=== PATIENT | female | born 1950 | race Caucasian/White ===

== ENCOUNTER → 2018-08-30 | Outpatient (CLI) | payer MEDICARE ==
--- NOTE | 2018-08-31 13:34 | MM ---
Reason for exam: screening (asymptomatic). Last mammogram was performed 1 year and 1 month ago. History: Patient is postmenopausal. Family history of breast cancer in sister at age 69. Benign US right guided VAD of the right breast, June 07, 2009. Benign right mammotome panel of the right breast, March 27, 2006. Cyst aspiration of the right breast, October 19, 1998. Benign ultrasound-guided cyst aspiration of the right breast, October 19, 1998. 3 cyst aspirations of the left breast. 4 cyst aspirations of the right breast. Physical Findings: A clinical breast exam by your physician is recommended on an annual basis and results should be correlated with mammographic findings. MG 3D Screening Mammo W/Cad Bilateral CC and MLO view(s) were taken. Prior study comparison: August 12, 2017, bilateral MG screening mammo w CAD. July 30, 2016, bilateral MG 3d screening mammo w/cad. The breast tissue is heterogeneously dense. This may lower the sensitivity of mammography. There are benign appearing round calcifications bilaterally. Previous mammotome biopsy in the right breast x 2. There is no discrete abnormality. ASSESSMENT: Benign, BI-RAD 2 RECOMMENDATION: Routine screening mammogram of both breasts in 1 year.
== END | disposition home or self-care (01) ==
LOC: RADMAMWWP 10:59
PROVIDERS: ATTEND Family Medicine
DX: Z12.31 Encounter for screening mammogram for malignant neoplasm of breast (principal)
CPT/HCPCS: 77063; 77067

== ENCOUNTER → 2018-11-16 | Outpatient (CLI) | payer MEDICARE ==
--- NOTE | 2018-11-16 16:07 | MR ---
EXAMINATION TYPE: MR knee LT wo con DATE OF EXAM: 11/16/2018 COMPARISON: None HISTORY: Left knee pain TECHNIQUE: Multiplanar, multisequence images of the knee is performed without IV contrast. FINDINGS: MEDIAL MENISCUS: Oblique tear posterior horn medial meniscus. Anterior horn is intact. LATERAL MENISCUS: Anterior and posterior horns are intact without tear. Extensive degeneration noted anterior and posterior horns. CRUCIATE LIGAMENTS: The anterior and posterior cruciate ligaments are intact and unremarkable. COLLATERAL LIGAMENTS: The medial collateral ligament and lateral collateral ligament complex are inta ct and unremarkable. EXTENSOR MECHANISM: Visualized quadriceps and patellar tendons are intact. EFFUSION: Small to moderate joint effusion noted. POPLITEAL CYST: No popliteal/thayer cyst. TRICOMPARTMENT SPACES: Moderate to severe narrowing medial tibiofemoral joint space. Mild patellofemo ral joint space narrowing. CARTILAGE: Intact. BONE MARROW SIGNAL: No focal abnormal marrow signal is appreciated. OTHER: No additional significant abnormality is appreciated. IMPRESSION: 1. Oblique tear posterior horn medial meniscus. 2. Changes of osteoarthritis. 3. Joint effusion.
== END | disposition home or self-care (01) ==
LOC: RADMRIMAIN 13:48
PROVIDERS: ATTEND Orthopaedic Surgery
DX: S83.242A Other tear of medial meniscus, current injury, left knee, initial encounter (principal); M17.12 Unilateral primary osteoarthritis, left knee

== ENCOUNTER 2018-12-30 10:40 | Day surgery (SDC) | payer MEDICARE ==
[2018-12-24 10:06] VITALS: BMI 36.6
--- NOTE | 2018-12-29 15:54 | HP ---
HISTORY AND PHYSICAL REASON FOR ADMISSION: Surgery scheduled for 12/30/2018. Ellen Silva is a 68-year-old patient seen with progressive left knee pain. Treatment options were discussed with her. She elected to proceed with arthroscopy. Consent was obtained. Medical clearance was provided by Dr. Duncan. PAST MEDICAL HISTORY: Hyperlipidemia and hypertension. PAST SURGICAL HISTORY: Cholecystectomy, coronary artery bypass surgery. MEDICATIONS: Aspirin, Mobic, simvastatin, Enbrel, lisinopril, methotrexate, metoprolol. ALLERGIES: IODINE. SOCIAL HISTORY: She denies tobacco use. PHYSICAL EXAMINATION: Evaluation of the left knee range of motion is 0 to 130 degrees. Tenderness along the medial and lateral joint line. Positive medial Georgiana's. Ligaments stable. Hip rotation without pain. Distal neurovascular exam intact. RADIOGRAPHS: Radiographs of the left knee revealed moderate osteoarthritis. An MRI of the left knee revealed a medial meniscal tear. There was a joint effusion. IMPRESSION: Internal derangement, left knee with medial meniscal tear. PLAN: Left knee arthroscopy with partial meniscectomy and debridement. Surgery scheduled for 12/30/2018. MMODL / IJN: [id number] /
[~2018-12-30 10:40] MED LIST: LACTATED RINGERS 1,000 ML IV SCH; LIDOCAINE 1% 20 ML VIAL (10MG/ML) FOR IV START INTRADERMA PRN; ONDANSETRON 4 MG/2 ML VIAL IVP ONE; ceFAZolin IN SWFI 2 GM/20 ML SYRINGE IVP ONE; fentaNYL (PF) 50 MCG/ML 2 ML AMP IV PRN
[2018-12-30] MEDS ORDERED: MIDAZOLAM 2 MG/2 ML VIAL ONE (11:48)
[2018-12-30] MEDS ORDERED: PROPOFOL 10 MG/ML 20 ML VIAL IV ONE (11:48)
[2018-12-30] MEDS ORDERED: ePHEDrine SULFATE/0.9% NACL/PF 50 MG/5 ML SYRINGE IV ONE (11:48)
[2018-12-30] MEDS ORDERED: LIDOCAINE 1% INJ 10MG/ML (20 ML MDV) ONE (11:48)
[2018-12-30] MEDS ORDERED: fentaNYL (PF) 50 MCG/ML 2 ML AMP ONE (11:48)
[2018-12-30] MEDS ORDERED: BUPIVACAIN-EPI 0.5%-1:200,000 30 ML VIAL SQ ONE (12:11)
--- NOTE | 2018-12-30 12:43 | P.OP ---
Date of Procedure: 12/30/18 Preoperative Diagnosis: Internal derangement left knee Postoperative Diagnosis: 1. Tear medial meniscus left knee 2. Grade 3 chondromalacia medial femoral condyle left knee 3. Grade 3 chondral malacia lateral femoral condyle left knee 4. Reactive synovitis medial, lateral and suprapatellar compartments left knee Procedure(s) Performed: 1. Arthroscopic partial medial meniscectomy left knee 2. Arthroscopic chondroplasty medial femoral condyle left knee 3. Arthroscopic chondroplasty lateral femoral condyle left knee 4. Arthroscopic partial synovectomy medial, lateral and suprapatellar compartments left knee Anesthesia: BRYSONA, local Surgeon: Raffy Dominguez Estimated Blood Loss (ml): 10 Pathology: none sent Condition: stable Disposition: PACU Indications for Procedure: 68-year-old patient seen with progressive left knee pain. After treatment options were discussed, she elected to proceed with arthroscopy. Operative Findings: See description of procedure Description of Procedure: Patient was taken to the operative suite. Patient underwent a general anesthetic by the department of anesthesia. Patient was given preoperative antibiotics. The left lower extremity was placed in a well-padded arthroscopic leg babb. The left leg was prepped and draped in the normal sterile orthopedic fashion. A lateral parapatellar and suprapatellar incision was made. Trochars were inserted. Arthroscopy was initiated. Suprapatellar pouch revealed diffuse thick reactive synovitis. The patellofemoral joint appeared to articulate congruently. There was grade 2 chondromalacia of the patella with no osteochondral tears present. The scope was guided into the medial gutter. No loose bodies or plica were identified. The scope was then guided into the medial compartment. A medial parapatellar incision was made. Trocar inserted followed by probe. There was a complex tear involving the posterior horn and midbody of the medial meniscus. There were grade 3 chondromalacia changes of the medial femoral condyle. There was thick reactive synovitis anteriorly. I performed a partial medial meniscectomy down to stable tissue. I performed a chondroplasty of the medial femoral condyle down to stable tissue. I performed a partial synovectomy decompressing the reactive synovitis. The residual meniscus was stable. There was good decompression of synovitis. The residual osteochondral surface was stable. Scope and probe were then guided into the intercondylar notch. Cruciates were identified, probed and found to be stable. The scope and probe were then guided into lateral compartment. There was some mild superficial fraying of lateral meniscus. There was grade 3 chondromalacia central weightbearing portion lateral femoral condyle with small osteochondral tears present. There was thick reactive synovitis anteriorly. I debrided the superficial tears with a motorized shaver. I performed a chondroplasty of the medial femoral condyle down to stable tissue. I performed a partial synovectomy decompressing reactive synovitis. The residual osteochondral surface was stable. There was good decompression of the synovitis. The scope was in guided back into the suprapatellar compartment. I introduced a motorized shaver into the suprapatellar compartment. I debrided piecemeal fragments of meniscus I encountered. I performed a partial synovectomy decompressing reactive synovitis. The shaver was removed. I took one more look on the entire knee, no residual debris. Instruments were now removed from the joint. The joint was infiltrated with .25% Marcaine. Steri-Strips were applied to the portal sites. Sterile dressings were applied. The patient was placed into a HERMELINDA hose. No tourniquet was utilized. The patient was awakened, transferred to a bed and taken to recovery stable satisfactory condition.
[2018-12-30 12:49] VITALS: TEMP 97
[2018-12-30] MEDS: HYDROmorphone 0.5 MG/0.5 ML SYRINGE IVP PRN ×2 (13:10→13:15)
[2018-12-30 13:32] VITALS: RESP 18
[2018-12-30 14:51] VITALS: BP 125/73; PULSE 78
== END 2018-12-30 14:51 | disposition home or self-care (01) ==
LOC: OR 10:40
PROVIDERS: ATTEND Orthopaedic Surgery
DX: S83.232A Complex tear of medial meniscus, current injury, left knee, initial encounter (principal); M65.88 Other synovitis and tenosynovitis, other site; M23.301 Other meniscus derangements, unspecified lateral meniscus, left knee; M94.262 Chondromalacia, left knee; Z95.1 Presence of aortocoronary bypass graft; I10 Essential (primary) hypertension; E78.5 Hyperlipidemia, unspecified; E78.00 Pure hypercholesterolemia, unspecified; J43.9 Emphysema, unspecified; I25.10 Atherosclerotic heart disease of native coronary artery without angina pectoris; M06.9 Rheumatoid arthritis, unspecified; M19.90 Unspecified osteoarthritis, unspecified site; I25.2 Old myocardial infarction; G43.B0 Ophthalmoplegic migraine, not intractable; K21.9 Gastro-esophageal reflux disease without esophagitis; Z87.01 Personal history of pneumonia (recurrent); Z79.1 Long term (current) use of non-steroidal anti-inflammatories (NSAID); Z79.82 Long term (current) use of aspirin; Z79.899 Other long term (current) drug therapy; Z91.048 Other nonmedicinal substance allergy status; Z88.5 Allergy status to narcotic agent
CPT/HCPCS: 29880; J2250; J2405; J2001; J3010; J2704; J1170

== ENCOUNTER → 2019-09-19 | Outpatient (CLI) | payer MEDICARE ==
--- NOTE | 2019-09-19 12:35 | MM ---
Reason for exam: screening (asymptomatic). Last mammogram was performed 1 year and 1 month ago. History: Patient is postmenopausal. Family history of breast cancer in sister at age 69. Benign US right guided VAD of the right breast, June 07, 2009. Benign right mammotome panel of the right breast, March 27, 2006. Cyst aspiration of the right breast, October 19, 1998. Benign ultrasound-guided cyst aspiration of the right breast, October 19, 1998. 3 cyst aspirations of the left breast. 4 cyst aspirations of the right breast. Physical Findings: A clinical breast exam by your physician is recommended on an annual basis and results should be correlated with mammographic findings. MG 3D Screening Mammo W/Cad Bilateral CC and MLO view(s) were taken. Prior study comparison: August 30, 2018, bilateral MG 3d screening mammo w/cad. August 12, 2017, bilateral MG screening mammo w CAD. Benign appearing bilateral calcifications. No suspicious abnormality. Two right biopsy markers noted. No significant changes when compared with prior studies. ASSESSMENT: Benign, BI-RAD 2 RECOMMENDATION: Routine screening mammogram of both breasts in 1 year.
== END | disposition home or self-care (01) ==
LOC: RADMAMWWP 10:42
PROVIDERS: ATTEND Family Medicine
DX: Z12.31 Encounter for screening mammogram for malignant neoplasm of breast (principal)
CPT/HCPCS: 77063; 77067

== ENCOUNTER → 2020-06-21 | Outpatient (CLI) | payer MEDICARE | END | disposition home or self-care (01) | LOC: LABWHC1 10:59 | PROVIDERS: ATTEND Family Medicine | DX: R05 Cough (principal) | CPT/HCPCS: U0003; C9803 ==

== ENCOUNTER → 2020-10-04 | Outpatient (CLI) | payer MEDICARE ==
--- NOTE | 2020-10-09 10:04 | MM ---
Reason for exam: screening (asymptomatic). Last mammogram was performed 1 year ago. History: Patient is postmenopausal. Family history of breast cancer in sister at age 69. Benign US right guided VAD of the right breast, June 07, 2009. Benign right mammotome panel of the right breast, March 27, 2006. Cyst aspiration of the right breast, October 19, 1998. Benign ultrasound-guided cyst aspiration of the right breast, October 19, 1998. 3 cyst aspirations of the left breast. 4 cyst aspirations of the right breast. Physical Findings: A clinical breast exam by your physician is recommended on an annual basis and results should be correlated with mammographic findings. MG 3D Screening Mammo W/Cad Bilateral CC and MLO view(s) were taken. Prior study comparison: September 19, 2019, bilateral MG 3d screening mammo w/cad. August 30, 2018, bilateral MG 3d screening mammo w/cad. The breast tissue is heterogeneously dense. This may lower the sensitivity of mammography. Previous mammotome biopsy in the right breast x 2. There is chronic nodularity in the left breast. Stable nodular asymmetry central right breast CC view. No significant changes when compared with prior studies. ASSESSMENT: Benign, BI-RAD 2 RECOMMENDATION: Routine screening mammogram of both breasts in 1 year.
== END | disposition home or self-care (01) ==
LOC: RADMAMWWP 11:01
PROVIDERS: ATTEND Family Medicine
DX: Z12.31 Encounter for screening mammogram for malignant neoplasm of breast (principal)
CPT/HCPCS: 77063; 77067

== ENCOUNTER 2021-10-27 12:50 | Emergency (ER) | payer MEDICARE ==
[2021-10-27 13:24] VITALS: RESP 18; TEMP 98.6
--- NOTE | 2021-10-27 14:19 | ED ---
General Adult HPI - General Chief complaint: ENT Stated complaint: Covid+/BAM Source: patient Mode of arrival: ambulatory Limitations: no limitations - History of Present Illness Initial comments: Ellen lyles pleasant 71-year-old female brought to the ER today by private vehicle for evaluation of possible COVID-19. Patient reports she's had a cough, runny nose, body aches, fatigue since Thursday. Patient believes she was exposed to COVID-19 during the week when attending a high school wrestling match. She reports that she had carpal tunnel surgery on the and tested negative at that time. Patient is fully vaccinated receive her booster vaccine. She came to the ER today for monoclonal antibody therapy. - Related Data Home Medications Medication Instructions Recorded Confirmed Albuterol Sulfate [Proair Hfa] 2 puff INHALATION RT-Q6H PRN 03/13/16 12/30/18 Aspirin EC [Ecotrin Low Dose] 81 mg PO HS 03/13/16 12/30/18 Atorvastatin [Lipitor] 40 mg PO HS 03/13/16 12/30/18 Calcium Carbonate [Calcium] 600 mg PO DAILY 03/13/16 12/30/18 Etanercept [Enbrel] 50 mg SQ TU 03/13/16 12/30/18 Meloxicam 15 mg PO DAILY 03/13/16 12/30/18 Metoprolol Tartrate [Lopressor] 50 mg PO BID 03/13/16 12/30/18 Omeprazole [PriLOSEC] 20 mg PO DAILY 03/13/16 12/30/18 Zolpidem [Ambien] 10 mg PO HS PRN 03/13/16 12/30/18 lisinopriL [Zestril] 10 mg PO BID 03/13/16 12/30/18 metHOTREXate sodium [Methotrexate] 17.5 mg PO TH 03/13/16 12/30/18 Folic Acid 0.8 mg PO DAILY 12/24/18 12/30/18 Vits A,C,E/Lutein/Minerals 1 each PO DAILY 12/24/18 12/30/18 [Ocuvite with Lutein Tablet] Previous Rx's Medication Instructions Recorded HYDROcodone/APAP 5-325MG [[place] 5] 1 each PO Q6HR PRN #12 tab 12/30/18 Allergies Allergy/AdvReac Type Severity Reaction Status Date / Time iodine Allergy skin Verified 10/27/21 13:24 irritation Review of Systems ROS Statement: Those systems with pertinent positive or pertinent negative responses have been documented in the HPI. ROS Other: All systems not noted in ROS Statement are negative. Past Medical History Past Medical History: Asthma, Coronary Artery Disease (CAD), Hyperlipidemia, Hypertension, Myocardial Infarction ([place]), Osteoarthritis (OA), Pneumonia, Rheumatoid Arthritis (RA), Skin Disorder Additional Past Medical History / Comment(s): occular migraines, hx eczema Last Myocardial Infarction Date:: unknown History of Any Multi-Drug Resistant Organisms: None Reported Past Surgical History: Appendectomy, Cholecystectomy, Coronary Bypass/CABG, Heart Catheterization Additional Past Surgical History / Comment(s): CABG-2008, jessica breast biopsy, carpal tunnel sx 10/18/21 Past Anesthesia/Blood Transfusion Reactions: No Reported Reaction Past Psychological History: No Psychological Hx Reported Smoking Status: Former smoker Past Alcohol Use History: Occasional Past Drug Use History: None Reported - Past Family History Sister(s) Family Medical History: Cancer Additional Family Medical History / Comment(s): breast Mother Family Medical History: Deep Vein Thrombosis (DVT) General Exam - General Exam Comments Initial Comments: Physical Exam GENERAL: Patient is well-developed and well-nourished. Patient is nontoxic and well-hydrated and is in no distress. HENT: Normocephalic, Atraumatic. EYES: PERRL, EOMI PULMONARY: Unlabored respirations CARDIOVASCULAR: Warm and well perfused extremities ABDOMEN: Non-distended SKIN: Well healing surgical incision left wrist : Deferred NEUROLOGIC: Alert and oriented Normal speech MUSCULOSKELETAL: Moving all extremities with no apparent injury PSYCHIATRIC: No SI/HI Limitations: no limitations Course Vital Signs 10/27/21 10/27/21 13:19 14:43 Temperature 98.6 F Pulse Rate 55 L Respiratory 18 18 Rate Blood Pressure 113/68 O2 Sat by Pulse 96 Oximetry Medical Decision Making - Medical Decision Making Patient was seen and evaluated, history was obtained from the patient and her , she did test positive for COVID-19, not hypoxic, given her advanced age and multiple medical comorbidities he is a candidate for monoclonal antibody therapy which she is requesting to receive. Patient did receive a small clinical antibody therapy here in the emergency department she was observed for one hour without reaction is stable for discharge home. - Lab Data Lab Results 10/27/21 Range/Units 13:28 Coronavirus (PCR) Detected A (Not Detectd) Disposition Clinical Impression: COVID-19 Disposition: HOME SELF-CARE Condition: Stable Additional Instructions: You have been diagnosed with COVID-19, at this time you appear stable to continue monitoring symptoms at home. I recommended you obtain a pulse oximeter, monitor your oxygen level and heart rate Return to the emergency department if your pulse ox remains below 90% or your heart rate is elevated Support your immune system by taking vitamin C, vitamin D and Zinc supplements (such as Emergen-C) or eating foods with these vitamins Stay hydrated as this will help reduce her fever and body aches Alternate Tylenol and Motrin for treatment of fever and body aches Is patient prescribed a controlled substance at d/c from ED?: No Referrals: Melyssa Duncan MD [Primary Care Provider] - 1-2 days
[2021-10-27] MEDS ORDERED: SOTROVIMAB (EUA) 500 MG in SODIUM CHLORIDE 0.9% 100 ML IVPB ONE (15:00)
[2021-10-27] MEDS ORDERED: SODIUM CHLORIDE 0.9% 50 ML IVPB ONE (15:30)
[2021-10-27 16:24] VITALS: BP 138/79; PULSE 72
== END 2021-10-27 16:00 | disposition home or self-care (01) ==
LOC: EC 12:50
DX: U07.1 COVID-19 (principal); J45.909 Unspecified asthma, uncomplicated; I25.10 Atherosclerotic heart disease of native coronary artery without angina pectoris; E78.5 Hyperlipidemia, unspecified; I10 Essential (primary) hypertension; I25.2 Old myocardial infarction; M19.90 Unspecified osteoarthritis, unspecified site; Z79.82 Long term (current) use of aspirin; Z90.49 Acquired absence of other specified parts of digestive tract; Z95.1 Presence of aortocoronary bypass graft; Z87.891 Personal history of nicotine dependence
CPT/HCPCS: 99283; 87635; Q0247

== ENCOUNTER → 2022-01-24 | Outpatient (CLI) | payer MEDICARE ==
--- NOTE | 2022-01-29 09:51 | MM ---
Reason for exam: screening (asymptomatic). Last mammogram was performed 1 year and 4 months ago. History: Patient is postmenopausal. Family history of breast cancer in sister at age 69. Benign US right guided VAD of the right breast, June 07, 2009. Benign right mammotome panel of the right breast, March 27, 2006. Cyst aspiration of the right breast, October 19, 1998. Benign ultrasound-guided cyst aspiration of the right breast, October 19, 1998. 3 cyst aspirations of the left breast. 4 cyst aspirations of the right breast. Physical Findings: A clinical breast exam by your physician is recommended on an annual basis and results should be correlated with mammographic findings. MG 3D Screening Mammo W/Cad Bilateral CC and MLO view(s) were taken. CV view(s) were taken of the left breast. Prior study comparison: October 04, 2020, bilateral MG 3d screening mammo w/cad. September 19, 2019, bilateral MG 3d screening mammo w/cad. There are scattered fibroglandular densities. No significant changes when compared with prior studies. ASSESSMENT: Benign, BI-RAD 2 RECOMMENDATION: Routine screening mammogram of both breasts in 1 year.
== END | disposition home or self-care (01) ==
LOC: RADMAMWWP 10:58
PROVIDERS: ATTEND Family Medicine
DX: Z12.31 Encounter for screening mammogram for malignant neoplasm of breast (principal); Z78.0 Asymptomatic menopausal state; Z80.3 Family history of malignant neoplasm of breast
CPT/HCPCS: 77063; 77067

== ENCOUNTER → 2022-10-20 | Day surgery (SDC) | payer MEDICARE ==
[2022-10-16 09:26] VITALS: BMI 35.5
[~2022-10-20] MED LIST changes: +ACETAMINOPHEN TAB 325 MG TAB PO SCH; +ACETAMINOPHEN TAB 500 MG TAB PO PRN; +BUPIVACAIN-EPI 0.25%-1:200,000 30 ML VIAL SQ ONE; +DEXAMETHASONE SOD PHOSPHATE 4 MG/ML 1 ML VIAL IV ONE; +GLYCOPYRROLATE 0.2 MG/ML 2 ML VIAL ONE; +HEPARIN SODIUM,PORCINE/PF 5,000 UNIT/0.5 ML SYRINGE SQ PRN; +HYDROmorphone 0.5 MG/0.5 ML SYRINGE IVP ONE; +HYDROmorphone 0.5 MG/0.5 ML SYRINGE IVP PRN; +IBUPROFEN 600 MG TAB PO SCH; +LACTATED RINGERS 1,000 ML IV ONE; +LIDOCAINE 1% (10MG/ML) FOR IV START INTRADERMA ONE; -LIDOCAINE 1% 20 ML VIAL (10MG/ML) FOR IV START INTRADERMA PRN; +LIDOCAINE 2% INJ 20 MG/ML (2 ML VIAL) ONE; +MIDAZOLAM 2 MG/2 ML VIAL IV PRN; +MIDAZOLAM 2 MG/2 ML VIAL ONE; +NEOSTIGMINE 1 MG/ML 10 ML VIAL ONE; +PROPOFOL 10 MG/ML 20 ML VIAL IV ONE; +ROCURONIUM 10 MG/ML (5 ML VIAL) IV ONE; +SUCCINYLCHOLINE CHLORIDE 200 MG/10 ML VIAL IV ONE; -ceFAZolin IN SWFI 2 GM/20 ML SYRINGE IVP ONE; -fentaNYL (PF) 50 MCG/ML 2 ML AMP IV PRN; +fentaNYL (PF) 50 MCG/ML 2 ML AMP ONE
--- NOTE | 2022-10-20 08:21 | P.GSHP ---
History of Present Illness H&P Date: 10/20/22 Chief Complaint: Incarcerated incisional hernia 72-year-old female here today for elective repair incarcerated incisional hernia. Patient has history of previous gastric bypass and open cholecystectomy. Bulge is present at the medial aspect of her previous gallbladder scar site. Mild pain. Hernia enlarging. Past Medical History Past Medical History: Asthma, Coronary Artery Disease (CAD), GERD/Reflux, Hyperlipidemia, Hypertension, Myocardial Infarction ([place]), Osteoarthritis (OA), Rheumatoid Arthritis (RA) Additional Past Medical History / Comment(s): occasional bronchitis., incisional hernia. Last Myocardial Infarction Date:: unknown History of Any Multi-Drug Resistant Organisms: None Reported Past Surgical History: Appendectomy, Cholecystectomy, Coronary Bypass/CABG, Heart Catheterization Additional Past Surgical History / Comment(s): CABG-2008, jessica breast biopsy, carpal tunnel sx, cataracts Past Anesthesia/Blood Transfusion Reactions: No Reported Reaction, Postoperative Nausea & Vomiting (PONV) Past Psychological History: No Psychological Hx Reported Smoking Status: Former smoker Past Alcohol Use History: Occasional Additional Past Alcohol Use History / Comment(s): quit smoking age 47, smoked for 30 yrs, 1 PPD Past Drug Use History: None Reported - Past Family History Sister(s) Family Medical History: Cancer Additional Family Medical History / Comment(s): breast Mother Family Medical History: Deep Vein Thrombosis (DVT) Medications and Allergies Home Medications Medication Instructions Recorded Confirmed Type Albuterol Sulfate [Proair Hfa] 2 puff INHALATION RT-Q6H PRN 03/13/16 10/16/22 History Aspirin EC [Ecotrin Low Dose] 81 mg PO HS 03/13/16 10/16/22 History Atorvastatin [Lipitor] 40 mg PO HS 03/13/16 10/16/22 History Calcium Carbonate [Calcium] 600 mg PO DAILY 03/13/16 10/16/22 History Etanercept [Enbrel] 50 mg SQ TU 03/13/16 10/16/22 History Meloxicam 15 mg PO DAILY 03/13/16 10/16/22 History Metoprolol Tartrate [Lopressor] 50 mg PO BID 03/13/16 10/16/22 History Omeprazole [PriLOSEC] 20 mg PO DAILY 03/13/16 10/16/22 History lisinopriL [Zestril] 10 mg PO BID 03/13/16 10/16/22 History metHOTREXate sodium [Methotrexate] 17.5 mg PO TH 03/13/16 10/16/22 History Folic Acid 0.8 mg PO DAILY 12/24/18 10/16/22 History Ezetimibe [Zetia] 10 mg PO DAILY 10/16/22 10/16/22 History Symbicort Inhaler 1 puff INHALATION DIRECTED PRN 10/16/22 History Allergies Allergy/AdvReac Type Severity Reaction Status Date / Time iodine Allergy skin Verified 10/20/22 08:14 irritation Surgical - Exam Physical exam: General: Well-developed, well-nourished HEENT: Normocephalic, sclerae nonicteric Abdomen: Nontender, nondistended, prior scars noted, incarcerated hernia medial aspect of previous open cholecystectomy scar Extremities: No edema Neuro: Alert and oriented Assessment and Plan (1) Incisional hernia Narrative/Plan: 72-year-old female with incarcerated incisional hernia. We'll proceed with open repair incarcerated incisional hernia with mesh. Risks of bleeding, infection, recurrence, bladder and bowel injury, numbness, nerve injury were discussed with the patient. The patient understands and wishes to proceed. Current Visit: Yes Status: Acute Code(s): K43.2 - INCISIONAL HERNIA WITHOUT OBSTRUCTION OR GANGRENE SNOMED Code(s): 941999652
[2022-10-20 08:46] LABS: Basophils % (A) 1 %; Eosinophils # (A) 0.3 k/uL (0-0.7); Eosinophils % (A) 5 %; HCT 40.5 % (34.0-46.0); HGB 13.7 gm/dL (11.4-16.0); Lymphocytes # (A) 2.2 k/uL (1.0-4.8); Lymphocytes % (A) 33 %; MCH 30.6 pg (25.0-35.0); MCHC 33.8 g/dL (31.0-37.0); MCV 90.5 fL (80.0-100.0); Mean Platelet Volume 7.7; Monocytes # (A) 0.4 k/uL (0-1.0); Monocytes % (A) 6 %; Neutrophils # (A) 3.5 k/uL (1.3-7.7); Neutrophils % (A) 53 %; Platelet Count 200 k/uL (150-450); RBC 4.47 m/uL (3.80-5.40); RDW 14.8 % (11.5-15.5); WBC 6.5 k/uL (3.8-10.6)
[2022-10-20 08:55] LABS: Glucose,Whole Blood 110 mg/dL (70-110)
[2022-10-20 09:05] LABS: ALT 27 U/L (4-34); AST 43 U/L (14-36); African American GFR (CKD) >90 (>60 ml/min/1.73 sqM); Albumin 3.9 g/dL (3.5-5.0); Alkaline Phosphatase 101 U/L (38-126); Anion Gap 6 mmol/L; Blood Urea Nitrogen 20 mg/dL (7-17); Calcium 8.8 mg/dL (8.4-10.2); Carbon Dioxide 27 mmol/L (22-30); Chloride 107 mmol/L (98-107); Glucose 100 mg/dL (74-99); Non-African American GFR(CKD) 85 (>60 ml/min/1.73 sqM); Potassium 4.6 mmol/L (3.5-5.1); Sodium 140 mmol/L (137-145); Total Bilirubin 1.1 mg/dL (0.2-1.3); Total Protein 7.2 g/dL (6.3-8.2)
--- NOTE | 2022-10-20 10:24 | P.OP ---
Date of Procedure: 10/20/22 Procedure(s) Performed: PREOPERATIVE DIAGNOSIS: Incarcerated incisional hernia POSTOPERATIVE DIAGNOSIS: Incarcerated incisional hernia 3.5 x 3.5 cm defect PROCEDURE: Open repair incarcerated incisional hernia with mesh SURGEON: Dr. Duncan ANESTHESIA: General OPERATIVE PROCEDURE DETAILS: Patient placed on the operating table in the supine position. Abdomen was prepped and draped in usual sterile fashion. The previous incision was re-incised and extended medially. Dissection through the subcutaneous tissues took place using electrocautery. A moderate size incisional hernia was identified. The hernia sac was carefully dissected down to the level of the fascia where it was excised. The patient had a single fascial defect measuring 3.5 x 3.5 cm. The preperitoneal space was dissected using blunt dissection and cautery. The hernia sac was reduced back into the pre-peroneal space. There was a small defect in the hernia sac that was closed using a running locking 3-0 Vicryl suture. Once we had adequate space a 8 cm ventral X mesh was placed beneath the fascia and sutured to the fascia using trans-fascial 0 Ethibond sutures. Following that the defect was reapproximated using interrupted horizontal mattress 0 Ethibond sutures. The folding edge was sutured down using 0 Ethibond sutures as well. The saphenous tissues were closed using 20 and 3-0 Vicryl sutures. No drain was utilized. The skin was then closed using a running 4-0 Monocryl subcuticular suture and skin glue. Sterile dressings were applied. HERNIA CHARACTERISTICS: Length: 3.5 cm Width: 3.5 cm Type: Incarcerated incisional TYPE OF MESH USED: 8 cm round ventral X LOCATION OF MESH: Sub-lay extraperitoneal FIXATION: Trans-fascial 0 Ethibond PREOPERATIVE DISCUSSION ON SMOKING CESSASTION: Yes PREOPERATIVE DISCUSSION ON MORBID OBESITY: Yes PREOPERATIVE DISCUSSION ON APPROPRIATE USE OF NARCOTIC USE: Yes PREOPERATIVE EDUCATION: Multi Modal, Smoking Cessation and Weight Loss with BMI over 35. DISPOSITION: Stable to recovery room
[2022-10-20 10:35] VITALS: TEMP 97
[2022-10-20 11:04] VITALS: RESP 16
[2022-10-20 11:36] VITALS: BP 145/83
[2022-10-20 11:58] VITALS: PULSE 60
== END ==
LOC: OR 08:00
PROVIDERS: ATTEND Surgery
DX: K43.0 Incisional hernia with obstruction, without gangrene (principal); J45.909 Unspecified asthma, uncomplicated; I25.10 Atherosclerotic heart disease of native coronary artery without angina pectoris; K21.9 Gastro-esophageal reflux disease without esophagitis; I10 Essential (primary) hypertension; E78.5 Hyperlipidemia, unspecified; I25.2 Old myocardial infarction; M19.90 Unspecified osteoarthritis, unspecified site; M06.9 Rheumatoid arthritis, unspecified; Z90.49 Acquired absence of other specified parts of digestive tract; Z98.84 Bariatric surgery status; Z95.1 Presence of aortocoronary bypass graft; Z98.49 Cataract extraction status, unspecified eye; Z87.891 Personal history of nicotine dependence; Z86.59 Personal history of other mental and behavioral disorders; Z82.49 Family history of ischemic heart disease and other diseases of the circulatory system; Z80.3 Family history of malignant neoplasm of breast; Z80.0 Family history of malignant neoplasm of digestive organs; Z79.82 Long term (current) use of aspirin; Z79.51 Long term (current) use of inhaled steroids; Z79.1 Long term (current) use of non-steroidal anti-inflammatories (NSAID); Z79.02 Long term (current) use of antithrombotics/antiplatelets; Z79.891 Long term (current) use of opiate analgesic; Z79.899 Other long term (current) drug therapy; Z91.041 Radiographic dye allergy status
CPT/HCPCS: 80053; 85025; 49594; C1781; J2250; J0330; J1100; J2710; J0690; J2405; J3010; J2704; J1170; J1644; J2001

== ENCOUNTER → 2023-01-26 | Outpatient (CLI) | payer MEDICARE ==
--- NOTE | 2023-01-27 10:02 | MM ---
Reason for Exam: Screening (asymptomatic). Last screening mammogram was performed 12 month(s) ago. Patient History: Menarche at age 13. First Full-Term at age 26. Postmenopausal. Patient has history of breast feeding. Cyst Aspiration on the Right side. Cyst Aspiration on the Right side. Cyst Aspiration on the Right side. Cyst Aspiration on the Right side. Cyst Aspiration on the Left side. Cyst Aspiration on the Left side. Cyst Aspiration on the Left side. 06/07/2009, Benign Core Biopsy on the right side. 03/27/2006, Benign Core Biopsy on the right side. 10/19/1998, Cyst Aspiration on the Right side. 10/19/1998, Benign Ultrasound-Guided Cyst Aspiration on the right side. Sister had breast cancer, age 69. Risk Values: Liliana 5 year model risk: 5.1%. NCI Lifetime model risk: 13.6%. Prior Study Comparison: 07/25/2015 Bilateral Screening Mammogram, [facility]. 07/30/2016 Bilateral Screening Mammogram, [facility]. 08/12/2017 Bilateral Screening Mammogram, [facility]. 08/30/2018 Bilateral Screening Mammogram, [facility]. 09/19/2019 Bilateral Screening Mammogram, [facility]. 10/04/2020 Bilateral Screening Mammogram, [facility]. 01/24/2022 Bilateral Screening Mammogram, [facility]. Tissue Density: There are scattered fibroglandular densities. Findings: Analyzed By CAD. Pattern appears symmetrical and stable. There are biopsy core markers within the right breast. No suspicious groups of microcalcifications, spiculated or lobular masses, architectural distortion or other secondary signs of malignancy are mammographically apparent. Overall Assessment: Benign, BI-RAD 2 Management: Screening Mammogram of both breasts in 1 year. A negative mammogram report should not preclude additional follow up of suspicious palpable abnormalities. Patient should continue monthly self breast exam. A clinical breast exam by your physician is recommended on an annual basis and results should be correlated with mammographic findings. Electronically signed and approved by: Danilo Oquendo D.O. Radiologis
== END | disposition home or self-care (01) ==
LOC: RADMAMWWP 10:00
PROVIDERS: ATTEND Family Medicine
DX: Z12.31 Encounter for screening mammogram for malignant neoplasm of breast (principal); Z78.0 Asymptomatic menopausal state; Z80.3 Family history of malignant neoplasm of breast
CPT/HCPCS: 77063; 77067

== ENCOUNTER 2023-09-30 17:21 | Observation (INO) | payer MEDICARE ==
[2023-09-30] MEDS ORDERED: SODIUM CHLORIDE 0.9% 1,000 ML IV STA (17:31)
[2023-09-30 17:36] LABS: Glucose,Whole Blood 84 mg/dL (70-110)
[2023-09-30 17:47] LABS: Basophils # (A) 0.1 k/uL (0-0.2); Basophils % (A) 1 %; Eosinophils # (A) 0.3 k/uL (0-0.7); Eosinophils % (A) 4 %; HCT 40.8 % (34.0-46.0); HGB 13.8 gm/dL (11.4-16.0); Lymphocytes # (A) 2.6 k/uL (1.0-4.8); Lymphocytes % (A) 36 %; MCH 30.6 pg (25.0-35.0); MCHC 33.8 g/dL (31.0-37.0); MCV 90.5 fL (80.0-100.0); Mean Platelet Volume 7.9; Monocytes # (A) 0.6 k/uL (0-1.0); Monocytes % (A) 8 %; Neutrophils # (A) 3.6 k/uL (1.3-7.7); Neutrophils % (A) 49 %; Platelet Count 152 k/uL (150-450); RDW 15.6 % (11.5-15.5); WBC 7.3 k/uL (3.8-10.6)
[2023-09-30 17:57] LABS: INR 1.1 (<1.2); Prothrombin Time 11.6 sec (10.0-12.5)
[2023-09-30 17:58] LABS: Partial Thromboplastin Time 23.1 sec (22.0-30.0)
[2023-09-30 17:59] LABS: ALT 25 U/L (4-34); AST 42 U/L (14-36); African American GFR (CKD) 67 (>60 ml/min/1.73 sqM); Albumin 3.8 g/dL (3.5-5.0); Alkaline Phosphatase 99 U/L (38-126); Anion Gap 12 mmol/L; Blood Urea Nitrogen 21 mg/dL (7-17); Calcium 8.9 mg/dL (8.4-10.2); Carbon Dioxide 25 mmol/L (22-30); Chloride 99 mmol/L (98-107); Creatine Kinase 82 U/L (30-135); Glucose 90 mg/dL (74-99); Non-African American GFR(CKD) 58 (>60 ml/min/1.73 sqM); Potassium 4.4 mmol/L (3.5-5.1); Sodium 136 mmol/L (137-145); Total Bilirubin 1.1 mg/dL (0.2-1.3)
--- NOTE | 2023-09-30 18:27 | CT ---
EXAMINATION TYPE: CT brain wo con for TPA CT DLP: 1099.6 mGycm, Automated exposure control for dose reduction was used. DATE OF EXAM: 09/30/2023 5:50 PM COMPARISON: None. CLINICAL INDICATION:Female, 73 years old with history of Neuro deficit, acute, stroke suspected, code stoke, neuro deficit TECHNIQUE: Brain: Axial CT images of the brain were obtained with coronal and sagittal reformats created and rev iewed. Contrast used: None. Oral contrast used: None. FINDINGS: Extra-axial spaces: No abnormal extra-axial fluid collections. Ventricular system: Appear dilated in proportion to the degree of cerebral atrophy. Cerebral parenchyma: No increased attenuation to suggest acute intraparenchymal hemorrhage. The gra y-white matter interface appears maintained, without clear evidence of acute territorial infarct. Mi ld generalized brain atrophy. White matter unremarkable by CT. Cerebellum: No acute abnormality. Mass effect: No evidence of mass effect or midline shift. Intracranial vasculature: Mild calcifications in the carotid siphons. Soft tissues: Normal. Visualized orbits: Orbital contents appear grossly intact. There has likely been previous lens surg thomas. Calvarium/osseous structures: No evidence of calvarial fracture. Paranasal sinuses and mastoid air cells: Clear MRI is more sensitive for detecting acute processes such as infarct, and may be considered if clinica lly warranted. IMPRESSION: No acute intracranial CT abnormality.
--- NOTE | 2023-09-30 18:34 | ED ---
Neuro HPI - General Chief Complaint: Neuro Symptoms/Deficit Stated Complaint: Stroke Like Symptoms Time Seen by Provider: 09/30/23 17:31 Source: patient, RN notes reviewed, old records reviewed Mode of arrival: ambulatory Limitations: no limitations - History of Present Illness Is the patient presenting with stroke symptoms?: Yes -: minutes(s) (20) Initial Comments: This is a 73-year-old female to the emergency department for evaluation today. Patient presents to the emergency department for evaluation regards to likely CVA with expressive aphasia, brought in by who was out of the patient was she became very frustrated with inability to speak. Her getting gas at the time and this was 20 minutes prior to arrival. Patient has no headache chest pain shortness with abdominal pain currently no other complaints Location: speech, dysarthria History of same: Yes Place: home Severity: moderate Quality: weak, numb, tingling Improves With: none On Anticoagulants: Yes Context: gradual onset Associated Symptoms: denies other symptoms Treatments Prior to Arrival: none - Related Data Home Medications: Home Medications Medication Instructions Recorded Confirmed Albuterol Sulfate [Proair Hfa] 2 puff INHALATION RT-Q6H PRN 03/13/16 09/30/23 Aspirin EC [Ecotrin Low Dose] 81 mg PO HS 03/13/16 09/30/23 Atorvastatin [Lipitor] 40 mg PO HS 03/13/16 09/30/23 Etanercept [Enbrel Sureclick] 50 mg SQ TU 03/13/16 09/30/23 Metoprolol Tartrate [Lopressor] 50 mg PO BID 03/13/16 09/30/23 Omeprazole [PriLOSEC] 20 mg PO DAILY 03/13/16 09/30/23 lisinopriL [Zestril] 10 mg PO BID 03/13/16 09/30/23 metHOTREXate sodium [Methotrexate] 17.5 mg PO TH 03/13/16 09/30/23 Ezetimibe [Zetia] 10 mg PO DAILY 10/16/22 09/30/23 Calcium Carbonate/Vitamin D3 1 tab PO DAILY 09/30/23 09/30/23 [Calcium 600 mg-D3 20 mcg (800 unit)] Phentermine HCl [Adipex-P] 37.5 mg PO DAILY 09/30/23 09/30/23 Zolpidem [Ambien] 5 mg PO HS PRN 09/30/23 09/30/23 Previous Rx's Medication Instructions Recorded Ticagrelor [Brilinta] 90 mg PO BID 30 Days #60 tab 10/01/23 Allergies/Adverse Reactions: Allergies Allergy/AdvReac Type Severity Reaction Status Date / Time povidone-iodine Allergy Itching Verified 10/01/23 09:48 [From Betadine] Review of Systems ROS Statement: Those systems with pertinent positive or pertinent negative responses have been documented in the HPI. ROS Other: All systems not noted in ROS Statement are negative. General Exam - General Exam Comments Initial Comments: NIH is nonfocal with some slurred or delayed speech Limitations: no limitations General appearance: alert, in no apparent distress, anxious Head exam: Present: atraumatic, normocephalic, normal inspection Eye exam: Present: normal appearance, PERRL, EOMI. Absent: scleral icterus, conjunctival injection, periorbital swelling ENT exam: Present: normal exam, mucous membranes moist Neck exam: Present: normal inspection. Absent: tenderness, meningismus, lymphadenopathy Respiratory exam: Present: normal lung sounds bilaterally. Absent: respiratory distress, wheezes, rales, rhonchi, stridor Cardiovascular Exam: Present: regular rate, normal rhythm, normal heart sounds. Absent: systolic murmur, diastolic murmur, rubs, gallop, clicks GI/Abdominal exam: Present: soft, normal bowel sounds. Absent: distended, tenderness, guarding, rebound, rigid Extremities exam: Present: normal inspection, full ROM, normal capillary refill. Absent: tenderness, pedal edema, joint swelling, calf tenderness Back exam: Present: normal inspection Neurological exam: Present: alert, oriented X3, CN II-XII intact Psychiatric exam: Present: normal affect, normal mood Skin exam: Present: warm, dry, intact, normal color. Absent: rash Stroke MDM - Lab Data Result diagrams: 09/30/23 17:37 09/30/23 17:37 Lab Results 09/30/23 09/30/23 09/30/23 Range/Units 17:35 17:37 17:37 WBC 7.3 (3.8-10.6) k/uL RBC 4.50 (3.80-5.40) m/uL Hgb 13.8 (11.4-16.0) gm/dL Hct 40.8 (34.0-46.0) % MCV 90.5 (80.0-100.0) fL MCH 30.6 (25.0-35.0) pg MCHC 33.8 (31.0-37.0) g/dL RDW 15.6 H (11.5-15.5) % Plt Count 152 (150-450) k/uL MPV 7.9 Neutrophils % 49 % Lymphocytes % 36 % Monocytes % 8 % Eosinophils % 4 % Basophils % 1 % Neutrophils # 3.6 (1.3-7.7) k/uL Lymphocytes # 2.6 (1.0-4.8) k/uL Monocytes # 0.6 (0-1.0) k/uL Eosinophils # 0.3 (0-0.7) k/uL Basophils # 0.1 (0-0.2) k/uL PT 11.6 (10.0-12.5) sec INR 1.1 (<1.2) APTT 23.1 (22.0-30.0) sec Sodium (137-145) mmol/L Potassium (3.5-5.1) mmol/L Chloride (98-107) mmol/L Carbon Dioxide (22-30) mmol/L Anion Gap mmol/L BUN (7-17) mg/dL Creatinine (0.52-1.04) mg/dL Est GFR (CKD-EPI)AfAm (>60 ml/min/1.73 sqM) Est GFR (CKD-EPI)NonAf (>60 ml/min/1.73 sqM) Glucose (74-99) mg/dL POC Glucose (mg/dL) 84 (70-110) mg/dL POC Glu Lead Sprinkler ID Fouzia Agrawal Calcium (8.4-10.2) mg/dL Total Bilirubin (0.2-1.3) mg/dL AST (14-36) U/L ALT (4-34) U/L Alkaline Phosphatase (38-126) U/L Creatine Kinase (30-135) U/L Troponin I (0.000-0.034) ng/mL Total Protein (6.3-8.2) g/dL Albumin (3.5-5.0) g/dL 09/30/23 09/30/23 Range/Units 17:37 17:37 WBC (3.8-10.6) k/uL RBC (3.80-5.40) m/uL Hgb (11.4-16.0) gm/dL Hct (34.0-46.0) % MCV (80.0-100.0) fL MCH (25.0-35.0) pg MCHC (31.0-37.0) g/dL RDW (11.5-15.5) % Plt Count (150-450) k/uL MPV Neutrophils % % Lymphocytes % % Monocytes % % Eosinophils % % Basophils % % Neutrophils # (1.3-7.7) k/uL Lymphocytes # (1.0-4.8) k/uL Monocytes # (0-1.0) k/uL Eosinophils # (0-0.7) k/uL Basophils # (0-0.2) k/uL PT (10.0-12.5) sec INR (<1.2) APTT (22.0-30.0) sec Sodium 136 L (137-145) mmol/L Potassium 4.4 (3.5-5.1) mmol/L Chloride 99 (98-107) mmol/L Carbon Dioxide 25 (22-30) mmol/L Anion Gap 12 mmol/L BUN 21 H (7-17) mg/dL Creatinine 0.98 (0.52-1.04) mg/dL Est GFR (CKD-EPI)AfAm 67 (>60 ml/min/1.73 sqM) Est GFR (CKD-EPI)NonAf 58 (>60 ml/min/1.73 sqM) Glucose 90 (74-99) mg/dL POC Glucose (mg/dL) (70-110) mg/dL POC Glu Lead Sprinkler ID Calcium 8.9 (8.4-10.2) mg/dL Total Bilirubin 1.1 (0.2-1.3) mg/dL AST 42 H (14-36) U/L ALT 25 (4-34) U/L Alkaline Phosphatase 99 (38-126) U/L Creatine Kinase 82 (30-135) U/L Troponin I <0.012 (0.000-0.034) ng/mL Total Protein 7.0 (6.3-8.2) g/dL Albumin 3.8 (3.5-5.0) g/dL - NIH Stroke Scale 1a. Level of Consciousness: (0) alert 1b. LOC Questions: (0) answers correctly 1c. LOC Commands: (0) performs tasks correctly 2. Best Gaze: (0) normal 3. Visual: (0) no visual loss 4. Facial Palsy: (0) normal symmetrical movement 5a. Motor Arm Left: (0) no drift 5b. Motor Arm Right: (0) no drift 6a. Motor Leg Left: (0) no drift 6b. Motor Leg Right: (0) no drift 7. Limb Ataxia: (0) absent 8. Sensory: (0) normal 9. Best Language: (1) mild/moderate aphasia 10. Dysarthria: (1) mild/moderate dysarthria 11. Extinction/Inattention: (0) no abnormality - Thrombolytic Inclusion/Exclusion Thrombolytic Inclusion Criteria: Symptom Onset < 4.5 h, NIH Stroke Scale Deficit Thrombolytic Contraindications: Stroke Too Mild (NIH < 5) - Medical Decision Making 73 female to the emergency department for evaluation of CVA TIA, TIA symptoms patient symptoms are improving here in the ER but will be admitted for neurology evaluation symptoms are consistently improving making her not a candidate for TPA Tylenol, patient will be admitted for neurology evaluation - Radiology Data Radiology results: report reviewed (CT brain CT head neck negative for acute disease), image reviewed - EKG Data -: EKG Interpreted by Me (EKG is sinus 78 FL 206 QRS 19 QTc 442) Past Medical History Past Medical History: Asthma, Coronary Artery Disease (CAD), GERD/Reflux, Hyperlipidemia, Hypertension, Myocardial Infarction (AL), Osteoarthritis (OA), R heumatoid Arthritis (RA) Additional Past Medical History / Comment(s): occasional bronchitis., incisional hernia. Last Myocardial Infarction Date:: unknown History of Any Multi-Drug Resistant Organisms: None Reported Past Surgical History: Appendectomy, Cholecystectomy, Coronary Bypass/CABG, Heart Catheterization Additional Past Surgical History / Comment(s): CABG-2009, jessica breast biopsy, carpal tunnel sx, cataracts Past Anesthesia/Blood Transfusion Reactions: No Reported Reaction, Postoperative Nausea & Vomiting (PONV) Past Psychological History: No Psychological Hx Reported Smoking Status: Former smoker Past Alcohol Use History: Occasional Past Drug Use History: None Reported - Past Family History Sister(s) Family Medical History: Cancer Additional Family Medical History / Comment(s): breast Mother Family Medical History: Deep Vein Thrombosis (DVT) Course Vital Signs 09/30/23 09/30/23 09/30/23 17:26 17:51 18:00 Temperature 97.6 F Pulse Rate 63 75 Respiratory 18 18 Rate Blood Pressure 176/73 150/101 O2 Sat by Pulse 97 96 95 Oximetry 09/30/23 09/30/23 09/30/23 18:15 18:45 19:00 Temperature Pulse Rate 89 80 85 Respiratory 20 14 22 Rate Blood Pressure 134/67 192/110 173/78 O2 Sat by Pulse 91 L 98 Oximetry 09/30/23 09/30/23 09/30/23 19:15 19:30 19:31 Temperature Pulse Rate 79 100 90 Respiratory 10 L 12 21 Rate Blood Pressure 135/98 157/97 157/97 O2 Sat by Pulse 92 L 88 L Oximetry 09/30/23 09/30/23 09/30/23 20:00 21:00 22:00 Temperature Pulse Rate 98 85 60 Respiratory 23 18 20 Rate Blood Pressure 147/84 O2 Sat by Pulse 95 97 Oximetry 09/30/23 09/30/23 10/01/23 23:00 23:19 00:00 Temperature Pulse Rate 64 64 60 Respiratory 19 18 21 Rate Blood Pressure 179/94 174/94 165/66 O2 Sat by Pulse 96 Oximetry 10/01/23 10/01/23 10/01/23 01:00 01:19 01:56 Temperature Pulse Rate 64 60 64 Respiratory 17 18 18 Rate Blood Pressure 165/66 144/86 O2 Sat by Pulse 97 95 Oximetry 10/01/23 10/01/23 10/01/23 02:00 03:00 04:00 Temperature Pulse Rate 63 69 Respiratory 20 18 Rate Blood Pressure 144/86 120/84 132/56 O2 Sat by Pulse 93 L Oximetry 10/01/23 10/01/23 10/01/23 05:00 06:00 07:00 Temperature Pulse Rate 63 57 L 56 L Respiratory 20 18 20 Rate Blood Pressure 132/56 O2 Sat by Pulse Oximetry 10/01/23 10/01/23 10/01/23 07:54 10:01 11:00 Temperature 97.6 F 97.5 F L Pulse Rate 57 L 59 L 61 Respiratory 16 16 16 Rate Blood Pressure 152/77 171/79 172/93 O2 Sat by Pulse 98 98 98 Oximetry 10/01/23 10/01/23 12:48 14:00 Temperature 97.7 F 97.7 F Pulse Rate 63 82 Respiratory 20 18 Rate Blood Pressure 193/78 187/110 O2 Sat by Pulse 94 L 98 Oximetry - Reevaluation(s) Reevaluation #1: 09/30/23 21:23 Medical record is reviewed 09/30/23 21:24 Stroke paged on patient arrival Reevaluation #2: 09/30/23 21:24 patient symptoms continue to improve here in the ER NIH 0 Reevaluation #3: 09/30/23 21:24 Patient informed results and questions answered Reevaluation #4: 09/30/23 21:08 Was pt. sent in by a medical professional or institution (MAURICE Mayo, PROFESSIONAL ADVISOR, urgent care, hospital, or longterm...) When possible be specific @ -no Did you speak to anyone other than the patient for history (EMS, parent, family, police, friend...)? What history was obtained from this source @ -no Did you review nursing and triage notes (agree or disagree)? Why? @ -agree Are old charts reviewed (outside hosp., previous admission, EMS record, old EKG, old radiological studies, urgent care reports/EKG's, longterm records)? Report findings @ -yes Differential Diagnosis (chest pain, altered mental status, abdominal pain women, abdominal pain men, vaginal bleeding, weakness, fever, dyspnea, syncope, headache, dizziness, GI bleed, back pain, seizure, CVA, palpatations, mental health, musculoskeletal)? @ -prior EKG interpreted by me (3pts min.). @ -yes X-rays interpreted by me (1pt min.). @ -yes negative for acute disease CT interpreted by me (1pt min.). @ -yes negative for acute disease U/S interpreted by me (1pt. min.). @ -no What testing was considered but not performed or refused? (CT, X-rays, U/S, labs)? Why? @ -none What meds were considered but not given or refused? Why? @ -none Did you discuss the management of the patient with other professionals (professionals i.e. MAURICE Mayo, PROFESSIONAL ADVISOR, lab, RT, psych nurse, social insurance adviser, criminal justice lawyer, teacher, occupational medicine officer, watch case polisher)? Give summary @ -no Was smoking cessation discussed for >3mins.? @ -no Was critical care preformed (if so, how long)? @ -no Were there social determinants of health that impacted care today? How? (Homelessness, low income, unemployed, alcoholism, drug addiction, transpor tation, low edu. Level, literacy, decrease access to med. care, m[facility], rehab)? @ -none Was there de-escalation of care discussed even if they declined (Discuss DNR or withdrawal of care, Hospice)? DNR status @ -no What co-morbidities impacted this encounter? (DM, HTN, Smoking, COPD, CAD, Cancer, CVA, ARF, Chemo, Hep., AIDS, mental health diagnosis, sleep apnea, morbid obesity)? @ -none Was patient admitted / discharged? Hospital course, mention meds given and route, prescriptions, significant lab abnormalities, going to OR and other pertinent info. @ - 73 female to the emergency department for evaluation of CVA TIA, TIA symptoms patient symptoms are improving here in the ER but will be admitted for neurology evaluation symptoms are consistently improving making her not a candidate for TPA patient will be admitted for neurology evaluation Admitted Undiagnosed new problem with uncertain prognosis? @ -no Drug Therapy requiring intensive monitoring for toxicity (Heparin, Nitro, Insuli n, Cardizem)? @ -no Were any procedures done? @ -no Diagnosis/symptom? @ -CVA transitioning to TIA Acute, or Chronic, or Acute on Chronic? @ -Acute Uncomplicated (without systemic symptoms) or Complicated (systemic symptoms)? @ -Complicated Side effects of treatment? @ -no Exacerbation, Progression, or Severe Exacerbation? @ -exacerbation Poses a threat to life or bodily function? How? (Chest pain, USA, AL, pneumonia, PE, COPD, DKA, ARF, appy, cholecystitis, CVA, Diverticulitis, Homicidal, Suicidal, threat to staff... and all critical care pts) @ -yes positive CVA Reevaluation #5: 09/30/23 21:24 Differential CVA Ischemic stroke, hemorrhagic stroke, brain tumor, atypical migraine, Wernicke's encephalopathy, seizure, multiple sclerosis, meningitis, encephalitis, hypoglycemia, Guillain-Bryant, electrolytes disturbance, myasthenia gravis.... This is not meant to be an all-inclusive list - Consultations Consultation #1: Spoke with [facility] who agree to admit the patient Consultation #2: spoke w neuro interventionalist who recommenrd ASA and Jessica for patient as well as neurology consult Critical Care Time Critical Care Time: Yes Total Critical Care Time: 31 Disposition Clinical Impression: Cerebrovascular accident (CVA), Transient cerebral ischemia Disposition: ADMITTED IP TO THIS HOSP Condition: Good Is patient prescribed a controlled substance at d/c from ED?: No Time of Disposition: 20:00
--- NOTE | 2023-09-30 19:06 | CT ---
EXAMINATION TYPE: CT angio head neck DATE OF EXAM: 09/30/2023 6:05 PM COMPARISON: Correlation with noncontrast CT head performed just prior. CLINICAL INDICATION:Female, 73 years old with history of Neuro deficit, acute, stroke suspected; PHH, Neuro deficit, acute, stroke suspected. difficulty speaking TECHNIQUE: Axially acquired helical CT angiogram of the head and neck was obtained with contrast. Axi al images are supplemented with 3D reconstructions which were post-[facility] at [facility]. NASCET criteria used. Contrast used: 65ml mL of Isovue 370 with IV Contrast, Oral contrast used: None. CT DLP: 484.1 mGycm, Automated exposure control for dose reduction was used. FINDINGS: CTA Neck: A 3 vessel aortic arch is shown. Atherosclerotic plaque is present in the aortic arch and at the origin of the left subclavian artery with mild narrowing of the subclavian. Mild calcified pl aque near the origin of the right vertebral does not appear to significantly narrow the artery. On th e left, there appears to be mild plaque close to the origin of the vertebral artery, with assessment somewhat limited by dense contrast in adjacent veins, however no significant stenosis is believed to be present. Proximal left vertebral is then tortuous coursing inferiorly before ascending in the neck . Left vertebral is slightly dominant. Both are patent throughout the neck without evidence of hemody namically significant diameter stenosis, dissection, or pseudoaneurysm. Right common carotid appears normally patent without significant plaque in its proximal aspects. Ther e is mild mixed soft and calcified plaque at the carotid bifurcation and proximal ICA, without signif icant stenosis. Right ICA then appears normally patent to the skull base. Left common carotid shows mild calcific plaque in its midportion without significant narrowing. At th e carotid bifurcation and proximal ICA, there is mild mostly calcified plaque without hemodynamic sig nificant stenosis. ICA is then patent to the skull base. There is mild plaque at the origins of both ECAs without significant stenosis. Other: Visualized soft tissues of the neck show no significant abnormality. The thyroid appears sligh tly heterogeneous. Included upper chest partially shows mild/moderate coronary artery calcifications bilaterally. Imaged portion of the pulmonary arteries appear to be enhancing normally. Pulmonary trun k is nonenlarged, 2.9 cm. Partially seen postoperative changes in the anterior mediastinum, likely CA BG. There are sternotomy wires. Lung apices show moderate to severe scarring/senescent changes. No de finite consolidation or pneumothorax. Osseous structures in the [id number]-[id number] show no acute abnormali ties. There is generally mild degenerative change of the cervical spine without suggestion of signifi cant canal stenosis. CTA Head: Posterior circulation: The intracranial vertebral arteries are normally patent. Basilar artery is pat ent and of normal caliber. Unremarkable bifurcation. Bilateral singer songwriter appear patent. No sizable posteri or communicating arteries are seen. Anterior circulation: Mild calcifications throughout the carotid siphons without significant stenosis seen. Left ICA bifurcation is unremarkable. Left MCA appears patent in the limits of the exam. Right ICA bifurcation is unremarkable. Right MCA appears patent in the limits of the exam. There are bilat eral patent anterior cerebral arteries and anterior communicating artery appears present. No major va scular occlusion, high-grade stenosis, or sizable aneurysm detected in the limits of CTA. Other: Dural venous sinuses appear to enhance without obvious evidence of venous sinus thrombosis. Th e left transverse and sigmoid sinus is noted to be smaller than the right. Please refer to CT head report for further description of findings. IMPRESSION: CTA neck: 1. No dissection or pseudoaneurysm detected in the carotid or vertebral arteries in the neck. 2. Mild atherosclerotic disease is present, without evidence of hemodynamically significant stenosis. CTA head: No intracranial major vascular occlusion, significant stenosis, or sizable aneurysm detected in the l imits of CTA.
[2023-09-30] MEDS ORDERED: ASPIRIN 325 MG TAB PO STA (20:18)
[2023-09-30] MEDS ORDERED: ATORVASTATIN 80 MG TAB PO SCH (21:00)
[2023-09-30] MEDS: SODIUM CHLORIDE 0.9% 1,000 ML IV SCH (21:02)
[2023-10-01] MEDS ORDERED: ACETAMINOPHEN TAB 500 MG TAB PO STA (02:08)
[2023-10-01] MEDS: SODIUM CHLORIDE 0.9% 1,000 ML IV SCH (07:01)
[2023-10-01] MEDS ORDERED: ASPIRIN 325 MG TAB PO SCH (09:00)
[2023-10-01] MEDS ORDERED: HEPARIN SODIUM,PORCINE 5,000 UNIT/ML 1 ML VIAL SQ SCH (09:00)
[2023-10-01] MEDS ORDERED: ZOLPIDEM 5 MG TAB PO PRN (09:56)
[2023-10-01] MEDS ORDERED: ALBUTEROL NEBULIZED 2.5 MG/3 ML INHALATION PRN (09:56)
[2023-10-01] MEDS ORDERED: PANTOPRAZOLE 40 MG TABLET PO SCH (10:30)
[2023-10-01] MEDS ORDERED: TICAGRELOR 90 MG TAB PO SCH (11:15)
[2023-10-01 11:16] LABS: Chol/HDL Ratio 2.49 Ratio; VLDL Calculation 18.94 mg/dL (5.00-40.00)
[2023-10-01 11:17] LABS: LDL Cholesterol,Calculated 36.7 mg/dL (0.0-131.0)
--- NOTE | 2023-10-01 11:27 | P.CNNES ---
History of Present Illness Consult date: 10/01/23 Requesting physician: Peter Jameson Reason for Consult: tia History of Present Illness: This is a 73-year-old woman who presented emergency department because of speech difficulty. Patient states that her symptoms began at 3:30ish pm yesterday and had difficulty expressing herself. She knew what she wanted to say but was coming out wrong and at times was not, in all left. The episode lasted for 5 minutes. She denies any focal weakness, numbness, difficulty swallowing or visual disturbance. Her symptoms resolved after 5 minutes as stated earlier. Patient does have underlying history of hypertension and recently she feels her blood pressure has been trending up. She stated that she had CABG in 2007 and that just post CABG she had questionable A. fib as a result she had ablation and did not require any anticoagulation. She is on aspirin 81 mg daily. She is on Lipitor 10 mg daily at bedtime. She had a remote episode similar to this but very brief. Some of the workup during his hospital visit consisted of: Initial vital signs his blood pressure was 176/73 and got as high as 192/110 most recent blood pressure is 152/77. Chemistry panel is the POC glucose is 84, sodium is 136, BUN is 21 creatinine is 0.98, AST is [address] head is reported as no acute intracranial CT abnormality. I personally reviewed the CT and I agree with the report CT angiography of the neck is reported as no dissection or pseudoaneurysm detected in the carotid or vertebral artery in the neck. Mild atherosclerotic disease is present, without evidence of hemodynamically significant stenosis. CT angiography of the head is reported as no intracranial major vascular occlusion, significant stenosis or sizable aneurysm detected in the in the limits of CT angiography EKG is reported as sinus rhythm with frequent the ventricular premature complexes. Left ventricle hypertrophy and STIR changes. Probable inferior myocardial infarction. Abnormal EKG. ED team NIH stroke scale was a 1 for mild to moderate aphasia. Seems a stroke pager was activated. No IV TPA since patient symptoms was very low and per the ED team was a 1 but per the patient's [id number] her symptoms has resolved upon presentation a nd again it only lasted for 5 minutes so was a 0. I spoke with the patient [id number] who is also a stroke cordinator in our facility and she stated she was evaluated by Dr. Naravetla and his P.A. and no thrombolytic since symptoms resolved. And it was recommended she be on Brilinta. The ED documentation is not clear about that. Then later, I spoke with the ED physician and he stated they did recommend Brilinta and the ED physician will modify his note stating that. She was given aspirin 325mg once in the ED. Review of Systems The positive and negative as per HPI. Past Medical History Past Medical History: Asthma, Coronary Artery Disease (CAD), GERD/Reflux, Hyperlipidemia, Hypertension, Myocardial Infarction ([place]), Osteoarthritis (OA), Rheumatoid Arthritis (RA) Additional Past Medical History / Comment(s): occasional bronchitis, incisional hernia. Last Myocardial Infarction Date:: unknown History of Any Multi-Drug Resistant Organisms: None Reported Past Surgical History: Appendectomy, Cholecystectomy, Coronary Bypass/CABG, Heart Catheterization, Orthopedic Surgery Additional Past Surgical History / Comment(s): CABG-2008, jessica breast biopsy, carpal tunnel sx, bilateral cataracts, left partial knee replacement February 2023 Past Anesthesia/Blood Transfusion Reactions: No Reported Reaction, Postoperative Nausea & Vomiting (PONV) Past Psychological History: No Psychological Hx Reported Smoking Status: Former smoker Past Alcohol Use History: Occasional Additional Past Alcohol Use History / Comment(s): quit smoking age 47, smoked for 30 yrs, 1 PPD Past Drug Use History: None Reported Additional Drug Use History / Comment(s): rarely drinks alcohol - Past Family History Sister(s) Family Medical History: Cancer Additional Family Medical History / Comment(s): breast Mother Family Medical History: Deep Vein Thrombosis (DVT) Medications and Allergies Home Medications Medication Instructions Recorded Confirmed Type Albuterol Sulfate [Proair Hfa] 2 puff INHALATION RT-Q6H PRN 03/13/16 09/30/23 History Aspirin EC [Ecotrin Low Dose] 81 mg PO HS 03/13/16 09/30/23 History Atorvastatin [Lipitor] 40 mg PO HS 03/13/16 09/30/23 History Etanercept [Enbrel Sureclick] 50 mg SQ TU 03/13/16 09/30/23 History Metoprolol Tartrate [Lopressor] 50 mg PO BID 03/13/16 09/30/23 History Omeprazole [PriLOSEC] 20 mg PO DAILY 03/13/16 09/30/23 History lisinopriL [Zestril] 10 mg PO BID 03/13/16 09/30/23 History metHOTREXate sodium [Methotrexate] 17.5 mg PO TH 03/13/16 09/30/23 History Ezetimibe [Zetia] 10 mg PO DAILY 10/16/22 09/30/23 History Calcium Carbonate/Vitamin D3 1 tab PO DAILY 09/30/23 09/30/23 History [Calcium 600 mg-D3 20 mcg (800 unit)] Phentermine HCl [Adipex-P] 37.5 mg PO DAILY 09/30/23 09/30/23 History Zolpidem [Ambien] 5 mg PO HS PRN 09/30/23 09/30/23 History Ticagrelor [Brilinta] 90 mg PO BID 30 Days #60 tab 10/01/23 Rx Allergies Allergy/AdvReac Type Severity Reaction Status Date / Time povidone-iodine Allergy Itching Verified 10/01/23 09:48 [From Betadine] Physical Examination - Vital Signs Vital Signs: Vital Signs Temp Pulse Resp BP Pulse Ox 10/01/23 10:01 97.5 F L 59 L 16 171/79 98 10/01/23 07:54 97.6 F 57 L 16 152/77 98 10/01/23 07:00 56 L 20 10/01/23 06:00 57 L 18 10/01/23 05:00 63 20 132/56 10/01/23 04:00 132/56 10/01/23 03:00 69 18 120/84 10/01/23 02:00 63 20 144/86 93 L 10/01/23 01:56 64 18 144/86 95 10/01/23 01:19 60 18 165/66 97 10/01/23 01:00 64 17 10/01/23 00:00 60 21 165/66 09/30/23 23:19 64 18 174/94 96 09/30/23 23:00 64 19 179/94 09/30/23 22:00 60 20 147/84 97 09/30/23 21:00 85 18 95 09/30/23 20:00 98 23 09/30/23 19:31 90 21 157/97 88 L 09/30/23 19:30 100 12 157/97 09/30/23 19:15 79 10 L 135/98 92 L 09/30/23 19:00 85 22 173/78 98 09/30/23 18:45 80 14 192/110 91 L 09/30/23 18:15 89 20 134/67 09/30/23 18:00 75 18 150/101 95 09/30/23 17:51 96 09/30/23 17:26 97.6 F 63 18 176/73 97 Intake and Output 09/30/23 10/01/23 10/01/23 22:59 06:59 14:59 Other: Weight 88.451 kg GENERAL: The patient is lying in bed and is not in acute distress. NEUROLOGICAL: Higher mental function: The patient is awake, alert, oriented to self, place and time. Patient is following commands. No aphasia and no neglect. Cranial nerves: The pupils are round, equal and reactive to light and accommodation. Visual garces are full to confrontation throughout. Extraocular movement is intact no nystagmus is noted. Facial sensation is normal to touch throughout. The facial strength is normal throughout. Hearing is normal bilaterally to hand rub. Tongue is midline and moved [id number] without any difficulty. No dysarthria is noted. Shoulder shrug is normal bilaterally. Motor: Gait is normal. The strength is 5 over 5 throughout. Normal tone and bulk. Cerebellum: Normal finger to nose bilaterally. Sensation: Sensation is normal to touch throughout. Reflexes (right/left):2+ throughout. Plantars are downgoing bilaterally. Results - Laboratory Findings CBC and BMP: 09/30/23 17:37 09/30/23 17:37 Abnormal Lab Findings: Abnormal Labs 09/30/23 09/30/23 17:37 17:37 RDW 15.6 H Sodium 136 L BUN 21 H AST 42 H Assessment and Plan Assessment: This is a 73 y/o woman with hx of CABG in 2007 and post-surgery had ?a-fib that resulted in ablation who presents because of expressive aphasia on 10/01/2023 which lasted for 5 minutes. Transient Ischemic Attack (TIA) and had expressive aphasia Escalate hypertension Questionable A. fib in 2007 post CABG in which she received ablation History of CABG in 2007 Hypercholesterolemia Plan: Was recommended by the stroke team (Dr. Sousa) yesterday to start her on Brilinta therefore, I started her on Brilinta 90mg bid. I resumed her ASA 81mg daily. Recommend ASA and Brilinta for 21 days and after 21 days to be on Brilinita indefinitely but discontinue ASA since failed. I went down on the Lipitor from 80 mg that was started by the ED to 40 mg for secondary stroke prophylaxis. Patient does not have any significant carotid stenosis for a high statin dose from a neurological perspective. Pending MRI the brain, 2-D echo, lipid panel. I ordered TSH I recommend a 30 days event monitor Continue neuro checks Cardiac monitoring PT, OT and REPAIRER KILN CAR are consulted Recommend the patient to follow-up with her casino surveillance officer as an outpatient regarding for further evaluation of her previous history of A. fib that she had ablation and if she does have any further A. fib recommend anticoagulation. If gets started on anticoagulation, then does not need dual antiplatelet from a neurologic perspective We'll defer the rest of the medical management to primary team Upon discharge recommend the patient to follow-up with a neurologist as an outpatient within 1-2 weeks For DVT prophylaxis I started the patient on subcu heparin 5000 units every 12 hours Plan was discussed with the patient in detail, her [id number]. Thank you for the consultation. Time with Patient: Greater than 30
--- NOTE | 2023-10-01 11:46 | MR ---
EXAMINATION TYPE: MR brain wo con DATE OF EXAM: 10/01/2023 COMPARISON: NONE HISTORY: Expressive aphasia, CVA. TECHNIQUE: T1-weighted sagittal, T2, FLAIR, and diffusion axial, and T2 coronal coronal views of the brain are submitted. FINDINGS: There is no evidence of acute ischemia. The ventricles, basal cisterns, and sulci overlying the conv exities are consistent with mild degenerative change. There is abnormal signal scattered within the w bryce matter bilaterally consistent with remote microvascular ischemic white matter disease. There is no mass effect. Craniocervical junction maintained. Sella turcica has a normal appearance. The orbits are symmetric. Minimal changes of chronic sinusitis. Cannot exclude a small posterior nasal passage\nasopharyngeal cyst. IMPRESSION: 1. No acute intracranial process. 2. Degenerative remote microvascular ischemic white matter disease.
--- NOTE | 2023-10-01 12:07 | P.HPIM ---
History of Present Illness H&P Date: 10/01/23 History of present illness; patient 73 year old lady with past medical history s ignificant for hyperlipidemia, hypertension, rheumatoid arthritis who presented to the ER for evaluation for strokelike symptoms. Patient stated she was all right yesterday afternoon when while driving with her she had an episode when she was unable to reply to . Patient was able to comprehend what her was saying but words were not able to come out her mouth. That episode lasted less than 5 minutes. There was no complain of any weakness of any extremity. No complaint of facial droop. No complain of loss of consciousness. Denies any complaint of fecal or urine incontinence. No jerking movement of any extremities. Patient has no prior history of any stroke. Bec ause of the symptoms, patient was brought to the ER Initial lab work done in the ER showed WBC 7.3, hemoglobin 13.8, platelet count 152, sodium 136, potassium 4.4, BUNs 21, creatinine 0.98, AST 42, AST 25, troponin 0.012 EKG done in the ER showed heart rate of 78, normal sinus rhythm, no ST segment elevation or depression seen, T-wave inversions seen in leads 3, aVF, V1, V2, V3 CT brain done showed no acute intracranial abnormality CTA head and neck done showed no dissection or aneurysm detected In the carotid or vertebral arteries. No intracranial major vascular occlusion, stenosis or aneurysm detected Patient admitted to internal medicine service REVIEW OF SYSTEMS: CONSTITUTIONAL: No fever, no malaise, no fatigue. HEENT: No recent visual problems or hearing problems. Denied any sore throat. CARDIOVASCULAR: No chest pain, orthopnea, PND, no palpitations, no syncope. PULMONARY: No shortness of breath, no cough, no hemoptysis. GASTROINTESTINAL: No diarrhea, no nausea, no vomiting, no abdominal pain. NEUROLOGICAL: As mentioned in HPI HEMATOLOGICAL: Denies any bleeding or petechiae. GENITOURINARY: Denies any burning micturition, frequency, or urgency. MUSCULOSKELETAL/RHEUMATOLOGICAL: Denies any joint pain, swelling, or any muscle pain. ENDOCRINE: Denies any polyuria or polydipsia. The rest of the 14-point review of systems is negative. PHYSICAL EXAMINATION: GENERAL: The patient is alert and oriented x3, not in any acute distress. Well developed, well nourished. HEENT: Pupils are round and equally reacting to light. EOMI. No scleral icterus. No conjunctival pallor. Normocephalic, atraumatic. No pharyngeal erythema. No thyromegaly. CARDIOVASCULAR: S1 and S2 present. No murmurs, rubs, or gallops. PULMONARY: Chest is clear to auscultation, no wheezing or crackles. ABDOMEN: Soft, nontender, nondistended, normoactive bowel sounds. No palpable organomegaly. MUSCULOSKELETAL: No joint swelling or deformity. EXTREMITIES: No cyanosis, clubbing, or pedal edema. NEUROLOGICAL: Gross neurological examination did not reveal any focal deficits. SKIN: No rashes. Assessment and plan TIA Hypertension Hyperlipidemia Monitor vital signs Monitor CBC Monitor CMP Continue telemetry monitoring Continue neuro checks Allow permissive hypertension for the first 48 hours Continue aspirin and Lipitor Ordered 2-D echo MRI brain ordered PT, OT, speech evaluation Consult neurology Labs and medication were reviewed.. Continue same treatment. Continue with symptomatic treatment. Resume home medication. Monitor labs and vitals. DVT and GI prophylaxis. Further recommendations as per clinical course of the patient Dictation was produced using [employer] dictation software. please excuse any grammatical, word or spelling errors. Past Medical History Past Medical History: Asthma, Coronary Artery Disease (CAD), GERD/Reflux, Hyperlipidemia, Hypertension, Myocardial Infarction ([place]), Osteoarthritis (OA), Rheumatoid Arthritis (RA) Additional Past Medical History / Comment(s): occasional bronchitis, incisional hernia. Last Myocardial Infarction Date:: unknown History of Any Multi-Drug Resistant Organisms: None Reported Past Surgical History: Appendectomy, Cholecystectomy, Coronary Bypass/CABG, Heart Catheterization, Orthopedic Surgery Additional Past Surgical History / Comment(s): CABG-2008, jessica breast biopsy, carpal tunnel sx, bilateral cataracts, left partial knee replacement February 2023 Past Anesthesia/Blood Transfusion Reactions: No Reported Reaction, Postoperative Nausea & Vomiting (PONV) Past Psychological History: No Psychological Hx Reported Smoking Status: Former smoker Past Alcohol Use History: Occasional Additional Past Alcohol Use History / Comment(s): quit smoking age 47, smoked for 30 yrs, 1 PPD Past Drug Use History: None Reported Additional Drug Use History / Comment(s): rarely drinks alcohol - Past Family History Sister(s) Family Medical History: Cancer Additional Family Medical History / Comment(s): breast Mother Family Medical History: Deep Vein Thrombosis (DVT) Medications and Allergies Home Medications Medication Instructions Recorded Confirmed Type Albuterol Sulfate [Proair Hfa] 2 puff INHALATION RT-Q6H PRN 03/13/16 09/30/23 History Aspirin EC [Ecotrin Low Dose] 81 mg PO HS 03/13/16 09/30/23 History Atorvastatin [Lipitor] 40 mg PO HS 03/13/16 09/30/23 History Etanercept [Enbrel] 50 mg SQ TU 03/13/16 09/30/23 History Meloxicam 15 mg PO DAILY 03/13/16 09/30/23 History Metoprolol Tartrate [Lopressor] 50 mg PO BID 03/13/16 09/30/23 History Omeprazole [PriLOSEC] 20 mg PO DAILY 03/13/16 09/30/23 History lisinopriL [Zestril] 10 mg PO BID 03/13/16 09/30/23 History metHOTREXate sodium [Methotrexate] 17.5 mg PO TH 03/13/16 09/30/23 History Ezetimibe [Zetia] 10 mg PO DAILY 10/16/22 09/30/23 History Calcium Carbonate/Vitamin D3 1 tab PO DAILY 09/30/23 09/30/23 History [Calcium 600 mg-D3 20 mcg (800 unit)] Phentermine HCl [Adipex-P] 37.5 mg PO DAILY 09/30/23 09/30/23 History Zolpidem [Ambien] 5 mg PO HS PRN 09/30/23 09/30/23 History Allergies Allergy/AdvReac Type Severity Reaction Status Date / Time povidone-iodine Allergy Itching Verified 10/01/23 09:48 [From Betadine] Physical Exam Vitals: Vital Signs Temp Pulse Resp BP Pulse Ox 10/01/23 07:54 97.6 F 57 L 16 152/77 98 10/01/23 07:00 56 L 20 10/01/23 06:00 57 L 18 10/01/23 05:00 63 20 132/56 10/01/23 04:00 132/56 10/01/23 03:00 69 18 120/84 10/01/23 02:00 63 20 144/86 93 L 10/01/23 01:56 64 18 144/86 95 12/21/23 01:19 60 18 165/66 97 10/01/23 01:00 64 17 10/01/23 00:00 60 21 165/66 09/30/23 23:19 64 18 174/94 96 09/30/23 23:00 64 19 179/94 09/30/23 22:00 60 20 147/84 97 09/30/23 21:00 85 18 95 09/30/23 20:00 98 23 09/30/23 19:31 90 21 157/97 88 L 09/30/23 19:30 100 12 157/97 09/30/23 19:15 79 10 L 135/98 92 L 09/30/23 19:00 85 22 173/78 98 09/30/23 18:45 80 14 192/110 91 L 09/30/23 18:15 89 20 134/67 09/30/23 18:00 75 18 150/101 95 09/30/23 17:51 96 09/30/23 17:26 97.6 F 63 18 176/73 97 Intake and Output 09/30/23 10/01/23 10/01/23 22:59 06:59 14:59 Other: Weight 88.451 kg Results CBC & Chem 7: 09/30/23 17:37 09/30/23 17:37 Labs: Abnormal Lab Results - Last 24 Hours (Table) 09/30/23 09/30/23 Range/Units 17:37 17:37 RDW 15.6 H (11.5-15.5) % Sodium 136 L (137-145) mmol/L BUN 21 H (7-17) mg/dL AST 42 H (14-36) U/L
--- NOTE | 2023-10-01 12:37 | CA ---
Transthoracic Echo Report Name: Ellen Silva Age: 73 Gender: F : 1950 Exam Date: 10/01/2023 09:07 Exam Location: [facility] Ht (in): 60 Wt (lb): 195 Ordering Physician: Peter Jameson DO Attending/Referring Phys: [id number], Trino Blender / Cook Charmaine Monk [facility] Procedure CPT: Indications: Thrombus Cardiac Hx: Technical Quality: Fair Contrast 1: Total Dose (mL): Contrast 2: Total Dose (mL): MEASUREMENTS (Male / Female) Normal Values 2D ECHO LV Diastolic Diameter PLAX 5.5 cm 4.2 - 5.9 / 3.9 - 5.3 cm LV Systolic Diameter PLAX 4.4 cm IVS Diastolic Thickness 1.2 cm 0.6 - 1.0 / 0.6 - 0.9 cm LVPW Diastolic Thickness 1.1 cm 0.6 - 1.0 / 0.6 - 0.9 cm LV Relative Wall Thickness 0.4 LVOT Diameter 2.0 cm LV Diastolic Volume MOD BP 80.6 cm??? 67 - 155 / 56 - 104 cm??? LV Systolic Volume MOD BP 42.2 cm??? 22 - 58 / 19 - 49 cm??? LV Ejection Fraction MOD BP 47.6 % >= 55 % LV Cardiac Index MOD BP 1161.8 cm???/min???m??? LV Diastolic Volume MOD 4C 77.3 cm??? LV Systolic Volume MOD 4C 38.6 cm??? LV Ejection Fraction MOD 4C 50.1 % LV Cardiac Index MOD 4C 1172.0 cm???/min???m??? LV Diastolic Length 4C 7.1 cm LV Systolic Length 4C 6.0 cm LV Diastolic Volume MOD 2C 81.7 cm??? LV Systolic Volume MOD 2C 45.3 cm??? LV Ejection Fraction MOD 2C 44.5 % LV Cardiac Index MOD 2C 1100.2 cm???/min???m??? LV Diastolic Length 2C 7.3 cm LV Systolic Length 2C 6.3 cm Ascending Aorta Diameter 3.1 cm M-MODE Aortic Root Diameter MM 2.4 cm LA Systolic Diameter MM 4.9 cm LA Ao Ratio MM 2.0 AV Cusp Separation MM 2.1 cm DOPPLER AV Peak Velocity 149.9 cm/s AV Peak Gradient 9.0 mmHg AV Mean Velocity 97.0 cm/s AV Mean Gradient 4.3 mmHg AV Velocity Time Integral 34.5 cm AI Peak Velocity 347.1 cm/s AI Peak Gradient 48.2 mmHg AI Pressure Half Time 1092.4 ms LVOT Peak Velocity 89.3 cm/s LVOT Peak Gradient 3.2 mmHg LVOT Velocity Time Integral 20.5 cm LVOT Stroke Volume 63.3 cm??? LVOT Stroke Volume Index 34.3 ml/m??? LVOT Cardiac Index 1914.6 cm???/min???m??? AV Area Cont Eq vti 1.8 cm??? AV Area Cont Eq pk 1.8 cm??? Mitral E Point Velocity 83.9 cm/s Mitral A Point Velocity 60.7 cm/s Mitral E to A Ratio 1.4 MV Deceleration Time 133.2 ms LV E' Lateral Velocity 8.0 cm/s Mitral E to LV E' Lateral Ratio 10.5 LV E' Septal Velocity 4.7 cm/s Mitral E to LV E' Septal Ratio 17.7 TR Peak Velocity 232.8 cm/s TR Peak Gradient 21.7 mmHg Right Atrial Pressure 3.0 mmHg Pulmonary Artery Systolic Pressu 24.7 mmHg Right Ventricular Systolic Press 24.7 mmHg FINDINGS Left Ventricle Mildly increased left ventricular wall thickness. Left ventricular cavity size normal. . Mildly increased left ventricular diastolic diameter. Mildly decreased left ventricular ejection fraction. Left ventricular ejection fraction is estimated at 45-50%. Inferior wall hypokinesis Right Ventricle Normal right ventricular size. Mildly increased basal right ventricular diameter. Right Atrium Moderate right atrial dilatation. Left Atrium Moderate left atrial dilatation. Mitral Valve Mitral valve thickened. Mitral annular calcification. [id number] mitral regurgitation. Aortic Valve Trileaflet aortic valve. Diffuse thickening (sclerosis) of the aortic valve cusps without reduced excursion. Mild aortic regurgitation. Tricuspid Valve Structurally normal tricuspid valve. Mild tricuspid regurgitation. Pulmonic Valve Pulmonic valve not well visualized. Pericardium No pericardial effusion. Aorta Normal size aortic root and proximal ascending aorta. CONCLUSIONS 1. Mildly impaired left ventricular systolic function 2. Mild to moderate mitral with mild aortic and tricuspid regurgitation Previewed by: Dr. Rj Sun MD (Electronically Signed) Final Date: 01 October 2023 12:37
[2023-10-01 13:02] VITALS: TEMP 97.7
--- NOTE | 2023-10-01 14:28 | P.DS ---
Providers Date of admission: 09/30/23 20:18 Expected date of discharge: 10/01/23 Attending physician: Chris Tavarez Consults: 09/30/23 20:18 Consult Physician Routine Consulting Provider: Arian Mueller Consult Reason/Comments: tia Do you want consulting provider notified?: Yes Primary care physician: Melyssa Duncan Hospital Course: Discharge diagnoses; TIA Hypertension Hyperlipidemia Hospital course; patient 73 year old lady with past medical history significant for hyperlipidemia, hypertension, rheumatoid arthritis who presented to the ER for evaluation for strokelike symptoms. Patient stated she was all right yesterday afternoon when while driving with her she had an episode when she was unable to reply to . Patient was able to comprehend what her was saying but words were not able to come out her mouth. That episode lasted less than 5 minutes. There was no complain of any weakness of any extremity. No complaint of facial droop. No complain of loss of consciousness. Denies any complaint of fecal or urine incontinence. No jerking movement of any extremities. Patient has no prior history of any stroke. Because of the symptoms, patient was brought to the ER Initial lab work done in the ER showed WBC 7.3, hemoglobin 13.8, platelet count 152, sodium 136, potassium 4.4, BUNs 21, creatinine 0.98, AST 42, AST 25, troponin 0.012 EKG done in the ER showed heart rate of 78, normal sinus rhythm, no ST segment elevation or depression seen, T-wave inversions seen in leads 3, aVF, V1, V2, V3 CT brain done showed no acute intracranial abnormality CTA head and neck done showed no dissection or aneurysm detected In the carotid or vertebral arteries. No intracranial major vascular occlusion, stenosis or aneurysm detected Patient admitted to internal medicine service MRI brain done showed no acute intracranial process. 2-D echo done showed mildly impaired systolic function, [id number] mitral and mild aortic and tricuspid regurg. Neurology evaluated the patient, recommended keeping patient on aspirin and adding brilinta. Patient will need a 30 day event monitor for which patient will contact patient's assembler fluorescent lights. Discussed patient echo results with patient primary assembler fluorescent lights and he is okay with outpatient follow-up PHYSICAL EXAMINATION: GENERAL: The patient is alert and oriented x3, not in any acute distress. Well developed, well nourished. HEENT: Pupils are round and equally reacting to light. EOMI. No scleral icterus. No conjunctival pallor. Normocephalic, atraumatic. No pharyngeal erythema. No thyromegaly. CARDIOVASCULAR: S1 and S2 present. No murmurs, rubs, or gallops. PULMONARY: Chest is clear to auscultation, no wheezing or crackles. ABDOMEN: Soft, nontender, nondistended, normoactive bowel sounds. No palpable organomegaly. MUSCULOSKELETAL: No joint swelling or deformity. EXTREMITIES: No cyanosis, clubbing, or pedal edema. NEUROLOGICAL: Gross neurological examination did not reveal any focal deficits. SKIN: No rashes. Dictation was produced using sifonr dictation software. please excuse any grammatical, word or spelling errors. Patient Condition at Discharge: Good Plan - Discharge Summary New Discharge Prescriptions: New Ticagrelor [Brilinta] 90 mg PO BID 30 Days #60 tab Continue Metoprolol Tartrate [Lopressor] 50 mg PO BID Atorvastatin [Lipitor] 40 mg PO HS Albuterol Sulfate [Proair Hfa] 2 puff INHALATION RT-Q6H PRN PRN Reason: Shortness Of Breath Omeprazole [PriLOSEC] 20 mg PO DAILY lisinopriL [Zestril] 10 mg PO BID Aspirin EC [Ecotrin Low Dose] 81 mg PO HS metHOTREXate sodium [Methotrexate] 17.5 mg PO TH Etanercept [Enbrel Sureclick] 50 mg SQ TU Ezetimibe [Zetia] 10 mg PO DAILY Zolpidem [Ambien] 5 mg PO HS PRN PRN Reason: Insomnia Phentermine HCl [Adipex-P] 37.5 mg PO DAILY Calcium Carbonate/Vitamin D3 [Calcium 600 mg-D3 20 mcg (800 unit)] 1 tab PO DAILY Discontinued Meloxicam 15 mg PO DAILY Discharge Medication List Albuterol Sulfate [Proair Hfa] 2 puff INHALATION RT-Q6H PRN 03/13/16 [History] Aspirin EC [Ecotrin Low Dose] 81 mg PO HS 03/13/16 [History] Atorvastatin [Lipitor] 40 mg PO HS 03/13/16 [History] Etanercept [Enbrel Sureclick] 50 mg SQ TU 03/13/16 [History] Metoprolol Tartrate [Lopressor] 50 mg PO BID 03/13/16 [History] Omeprazole [PriLOSEC] 20 mg PO DAILY 03/13/16 [History] lisinopriL [Zestril] 10 mg PO BID 03/13/16 [History] metHOTREXate sodium [Methotrexate] 17.5 mg PO TH 03/13/16 [History] Ezetimibe [Zetia] 10 mg PO DAILY 10/16/22 [History] Calcium Carbonate/Vitamin D3 [Calcium 600 mg-D3 20 mcg (800 unit)] 1 tab PO DAILY 09/30/23 [History] Phentermine HCl [Adipex-P] 37.5 mg PO DAILY 09/30/23 [History] Zolpidem [Ambien] 5 mg PO HS PRN 09/30/23 [History] Ticagrelor [Brilinta] 90 mg PO BID 30 Days #60 tab 10/01/23 [Rx] Follow up Appointment(s)/Referral(s): Melyssa Duncan MD [Primary Care Provider] - 1-2 days Rj Sun MD [STAFF PHYSICIAN] - 1 Week Activity/Diet/Wound Care/Special Instructions: Patient needs a 30 day event monitor, patient will talk to Dr. Sun about it Discharge Disposition: HOME SELF-CARE
[2023-10-01 14:42] VITALS: BP 187/110; PULSE 82; RESP 18
[2023-10-01] MEDS ORDERED: ATORVASTATIN 40 MG TAB PO SCH (21:00)
[2023-10-02] MEDS ORDERED: CALCIUM CARB-VIT D 500 MG-5 MCG TAB PO SCH (09:00)
[2023-10-02] MEDS ORDERED: ASPIRIN 81 MG PO SCH (09:00)
[2023-10-02] MEDS ORDERED: NON FORMULARY DRUG (Phentermine Hcl [Adipex-P] 37.5 MG Tablet) PO SCH (09:00)
[2023-10-02] MEDS ORDERED: EZETIMIBE 10 MG TAB PO SCH (09:00)
== END 2023-10-01 18:21 | disposition home or self-care (01) ==
LOC: EC 17:21 → 3SCARD 20:18
PROVIDERS: ADMIT Hospitalist; ATTEND Hospitalist
DX: I21.19 ST elevation (STEMI) myocardial infarction involving other coronary artery of inferior wall (principal); I63.9 Cerebral infarction, unspecified; E78.00 Pure hypercholesterolemia, unspecified; I07.1 Rheumatic tricuspid insufficiency; I10 Essential (primary) hypertension; I25.10 Atherosclerotic heart disease of native coronary artery without angina pectoris; I48.91 Unspecified atrial fibrillation; J45.909 Unspecified asthma, uncomplicated; M06.9 Rheumatoid arthritis, unspecified; R29.701 NIHSS score 1; Z79.02 Long term (current) use of antithrombotics/antiplatelets; Z79.1 Long term (current) use of non-steroidal anti-inflammatories (NSAID); Z79.82 Long term (current) use of aspirin; Z79.899 Other long term (current) drug therapy; Z87.891 Personal history of nicotine dependence; Z95.1 Presence of aortocoronary bypass graft
CPT/HCPCS: 96360; 96361 ×2; 96372; 99285; 36415; 93005; 93306; 80061; 80053; 84443; 82550; 84484; 85025; 85610; 85730; 70496; 70450; 70498; 70551; G0378 ×2; J1644; Q9967

== ENCOUNTER 2023-11-11 10:51 | Inpatient (IN) | payer MEDICARE ==
--- NOTE | 2023-11-11 11:27 | ED ---
Chest Pain HPI - General Source: patient, family, RN notes reviewed Mode of arrival: wheelchair <Trudi Ruth - Last Filed: 11/11/23 11:27> <Bobby Valles - Last Filed: 11/11/23 13:47> - General Chief Complaint: Chest Pain Stated Complaint: CARLI chest pain Time Seen by Provider: 11/11/23 11:27 - History of Present Illness Initial Comments: Patient is a 73-year-old female presented to the ER with a chief complaint of dyspnea and chest pain. Patient states that started about a week ago. Patient is endorsing increased weakness as well. Patient is not on oxygen at home. (Trudi Ruth) Dictation was produced using Dishcrawl dictation software. please excuse any grammatical, word or spelling errors. Chief Complaint: 73-year-old female with asthma, coronary disease dyslipidemia presents emergency department with worsening respiratory infectious symptoms History of Present Illness: Patient 73-year-old female presents to the ER for persistent slightly worsening respiratory symptoms. For the last week she has been dealing with chills, shortness of breath congestion chest pain and productive cough. States that her cough is yellow in color. She just finished a steroid Dosepak without any relief. Some history obtained from daughter who is one of our nurses states that she has been tested for RSV COVID etc. The ROS documented in this emergency department record has been reviewed and confirmed by me. Those systems with pertinent positive or negative responses have been documented in the HPI. All other systems are other negative and/or noncontributory. (Bobby Valles) - Related Data Home Medications Medication Instructions Recorded Confirmed Albuterol Sulfate [Proair Hfa] 2 puff INHALATION RT-Q6H PRN 03/13/16 11/11/23 Aspirin EC [Ecotrin Low Dose] 81 mg PO HS 03/13/16 11/11/23 Atorvastatin [Lipitor] 40 mg PO HS 03/13/16 11/11/23 Etanercept [Enbrel Sureclick] 50 mg SQ TU 03/13/16 11/11/23 Metoprolol Tartrate [Lopressor] 50 mg PO BID 03/13/16 11/11/23 Omeprazole [PriLOSEC] 20 mg PO DAILY 03/13/16 11/11/23 lisinopriL [Zestril] 20 mg PO BID 03/13/16 11/11/23 metHOTREXate sodium 17.5 mg PO TH 03/13/16 11/11/23 Ezetimibe [Zetia] 10 mg PO DAILY 10/16/22 11/11/23 Calcium Carbonate/Vitamin D3 1 tab PO DAILY 09/30/23 11/11/23 [Calcium 600 mg-D3 20 mcg (800 unit)] Zolpidem [Ambien] 5 mg PO HS PRN 09/30/23 11/11/23 Budesonide/Formoterol Fumarate 2 puff INHALATION RT-BID 11/11/23 11/11/23 [Symbicort 160-4.5 Mcg Inhaler] Meloxicam [Mobic] 15 mg PO DAILY 11/11/23 11/11/23 Allergies Allergy/AdvReac Type Severity Reaction Status Date / Time povidone-iodine Allergy Itching Verified 11/11/23 13:23 [From Betadine] Review of Systems ROS Other: All systems not noted in ROS Statement are negative. <Trudi Ruth - Last Filed: 11/11/23 11:27> ROS Other: All systems not noted in ROS Statement are negative. <Bobby Valles - Last Filed: 11/11/23 13:47> ROS Statement: Those systems with pertinent positive or pertinent negative responses have been documented in the HPI. Past Medical History Past Medical History: Asthma, Coronary Artery Disease (CAD), GERD/Reflux, Hyperlipidemia, Hypertension, Myocardial Infarction ([place]), Osteoarthritis (OA), Rheumatoid Arthritis (RA) Additional Past Medical History / Comment(s): occasional bronchitis., incisional hernia. Last Myocardial Infarction Date:: unknown History of Any Multi-Drug Resistant Organisms: None Reported Past Surgical History: Appendectomy, Cholecystectomy, Coronary Bypass/CABG, Heart Catheterization Additional Past Surgical History / Comment(s): CABG-2009, jessica breast biopsy, carpal tunnel sx, cataracts Past Anesthesia/Blood Transfusion Reactions: No Reported Reaction, Postoperative Nausea & Vomiting (PONV) Past Psychological History: No Psychological Hx Reported Smoking Status: Former smoker Past Alcohol Use History: Occasional Past Drug Use History: None Reported - Past Family History Sister(s) Family Medical History: Cancer Additional Family Medical History / Comment(s): breast Mother Family Medical History: Deep Vein Thrombosis (DVT) <Trudi Ruth - Last Filed: 11/11/23 11:27> General Exam <Trudi Ruth - Last Filed: 11/11/23 11:27> <Bobby Valles - Last Filed: 11/11/23 13:47> - General Exam Comments Initial Comments: Visual Physical Exam Vital signs reviewed General: Well-appearing, nontoxic, no acute distress. Head: Normocephalic, atraumatic Eyes: PERRLA, EOMI ENT: Airway patent Chest: Nonlabored breathing Skin: No visual rash, normal skin tone Neuro: Alert and oriented 3 Musculoskeletal: No gross abnormalities (Trudi Ruth) PHYSICAL EXAM: General Impression: Alert and oriented x3, not in acute distress HEENT: Normocephalic atraumatic, extra-ocular movements intact, pupils equal and reactive to light bilaterally, mucous membranes moist. Cardiovascular: Heart regular rate and rhythm Chest: Able to complete full sentences, no retractions, diffuse lung crackles Abdomen: abdomen soft, non-tender, non-distended, no organomegaly Musculoskeletal: Pulses present and equal in all extremities, no peripheral edema Motor: no focal deficits noted Neurological: CN II-XII grossly intact, no focal motor or sensory deficits noted Skin: Intact with no visualized rashes Psych: Normal affect and mood (Bobby Valles) Course Vital Signs 11/11/23 10:58 Temperature 97.7 F Pulse Rate 101 H Respiratory 22 Rate Blood Pressure 123/65 O2 Sat by Pulse 91 L Oximetry Chest Pain MDM <Trudi Ruth - Last Filed: 11/11/23 11:27> <Bobby Valles - Last Filed: 11/11/23 13:47> - MDM I performed the quick note portion of the exam. Electronically signed by Trudi Ruth PA-C (Trudi Ruth) My EKG interpretation: Ventricular rate 98, sinus rhythm, LA 160, QRS 108, QTc 398. No LA prolongation, no QTC prolongation, no ST or T-wave changes noted. EKG compared to September 30, 2023 showing no changes. Overall, this EKG is unremarkable Was pt. sent in by a medical professional or institution ([facility], TURNTABLE WORKER, urgent care, hospital, or usp...) When possible be specific @ -No Did you speak to anyone other than the patient for history (EMS, parent, family, police, friend...)? What history was obtained from this source @ -No Did you review nursing and triage notes (agree or disagree)? Why? @ -I reviewed and agree with nursing and triage notes Were old charts reviewed (outside hosp., previous admission, EMS record, old EKG, old radiological studies, urgent care reports/EKG's, usp records)? Report findings @ -No Differential Diagnosis (chest pain, altered mental status, abdominal pain women, abdominal pain men, vaginal bleeding, musculoskeletal, weakness, fever, dyspnea, syncope, headache, dizziness, GI bleed, back pain, seizure, CVA, palpatations, mental health)? @ -Differential Dyspnea: Coronary syndrome, arrhythmia, tamponade, asthma, COPD, pulmonary embolism, pneumonia, pneumothorax, pulmonary effusion, anaphylaxis, diabetic ketoacidosis, flailed chest, pulmonary contusion, diaphragmatic rupture, anemia, neuromuscular, this is not meant to be an all-inclusive list. EKG interpreted by me (3pts min.). @ -See above X-rays interpreted by me (1pt min.). @ -X-ray shows diffuse interstitial density CT interpreted by me (1pt min.). @ -None done U/S interpreted by me (1pt. min.). @ -None done What testing was considered but not performed or refused? (CT, X-rays, U/S, labs)? Why? @ -None What meds were considered but not given or refused? Why? @ -None Did you discuss the management of the patient with other professionals (professionals i.e. , PA, TURNTABLE WORKER, lab, RT, psych nurse, psychiatric social worker, immigration lawyer, teacher, airline pilot/first officer, residential case manager)? Give summary @ -Case discussed with hospitalist for admission Was smoking cessation discussed for >3mins.? @ -No Was critical care preformed (if so, how long)? @ -No Were there social determinants of health that impacted care today? How? (Homelessness, low income, unemployed, alcoholism, drug addiction, transportation, low edu. Level, literacy, decrease access to med. care, half-way, rehab)? @ -No Was there de-escalation of care discussed even if they declined (Discuss DNR or withdrawal of care, Hospice)? DNR status @ -No What co-morbidities impacted this encounter? (DM, HTN, Smoking, COPD, CAD, Cancer, CVA, ARF, Chemo, Hep., AIDS, mental health diagnosis, sleep apnea, morbid obesity)? @ -None Was patient admitted / discharged? Hospital course, mention meds given and route, prescriptions, significant lab abnormalities, going to OR and other pertinent info. @ -74-year-old female presents to the emergency department for persistent cough shortness of breath. Patient completed course of steroids prior to coming to the ER. She was currently managed by primary care doctor however is not improving. Vital signs upon arrival shows mild tachycardia mild hypoxia. Otherwise not hypotensive afebrile. Laboratory evaluation shows normal CBC. Coag panel negative. Sodium 127. Troponin is 0.081. Hypomagnesemia. Influenza A positive. Given patient's elevated troponin and tachycardia there is concern of viral myocarditis. Patient be admitted with consultation cardiology and pulmonology. Undiagnosed new problem with uncertain prognosis? @ -No Drug Therapy requiring intensive monitoring for toxicity (Heparin, Nitro, Insulin, Cardizem)? @ -No Were any procedures done? @ -No Diagnosis/symptom? Acute, or Chronic, or Acute on Chronic? Uncomplicated (without systemic symptoms) or Complicated (systemic symptoms)? @ -Influenza, elevated troponin Side effects of treatment? @ -No Exacerbation, Progression, or Severe Exacerbation? @ -No Poses a threat to life or bodily function? How? (Chest pain, [place], [place], pneumonia, PE, COPD, DKA, ARF, appy, cholecystitis, CVA, Diverticulitis, Homicidal, Suicidal, threat to staff... and all critical care pts) @ -yes (Bobby Valles) Disposition <Trudi Ruth - Last Filed: 11/11/23 11:27> Decision Time: 13:47 <Bobby Valles - Last Filed: 11/11/23 13:47> Clinical Impression: Influenza, Elevated troponin, Acute non-ST elevation myocardial infarction (NSTEMI) Disposition: ADMITTED IP TO THIS HOSP Condition: Fair Referrals: Melyssa Duncan MD [Primary Care Provider] - 1-2 days
[2023-11-11 11:48] LABS: INR 1.1 (<1.2); Partial Thromboplastin Time 23.3 sec (22.0-30.0); Prothrombin Time 11.8 sec (10.0-12.5)
[2023-11-11 11:54] LABS: Basophils % (A) 0 %; Eosinophils % (A) 0 %; HCT 41.9 % (34.0-46.0); HGB 14.4 gm/dL (11.4-16.0); Lymphocytes # (A) 0.8 k/uL (1.0-4.8); Lymphocytes % (A) 13 %; MCH 29.9 pg (25.0-35.0); MCHC 34.4 g/dL (31.0-37.0); MCV 86.9 fL (80.0-100.0); Mean Platelet Volume 8.6; Monocytes # (A) 0.5 k/uL (0-1.0); Monocytes % (A) 7 %; Neutrophils % (A) 78 %; Platelet Count 148 k/uL (150-450); RBC 4.82 m/uL (3.80-5.40); WBC 6.4 k/uL (3.8-10.6)
[2023-11-11 12:19] LABS: ALT 38 U/L (4-34); AST 81 U/L (14-36); African American GFR (CKD) >90 (>60 ml/min/1.73 sqM); Albumin 3.3 g/dL (3.5-5.0); Alkaline Phosphatase 100 U/L (38-126); Anion Gap 8 mmol/L; Blood Urea Nitrogen 17 mg/dL (7-17); Calcium 7.9 mg/dL (8.4-10.2); Carbon Dioxide 22 mmol/L (22-30); Chloride 97 mmol/L (98-107); Glucose 106 mg/dL (74-99); Magnesium 1.3 mg/dL (1.6-2.3); Non-African American GFR(CKD) 88 (>60 ml/min/1.73 sqM); Potassium 3.6 mmol/L (3.5-5.1); Sodium 127 mmol/L (137-145); Total Bilirubin 1.5 mg/dL (0.2-1.3); Total Protein 6.5 g/dL (6.3-8.2)
--- NOTE | 2023-11-11 12:37 | XR ---
EXAMINATION TYPE: XR chest 2V DATE OF EXAM: 11/11/2023 COMPARISON: None HISTORY: 73-year-old female chest pain, dyspnea, angina TECHNIQUE: AP and lateral views FINDINGS: Electronic device projects over the left midchest. Median sternotomy wires. Heart and lungs are sonu l in size. Mild diffuse interstitial density. No consolidation or pleural effusion seen. IMPRESSION: Mild diffuse interstitial density. Consider mild pulmonary vascular congestion, bronchitis, or chroni c asthma. No focal infiltrate seen.
[2023-11-11] MEDS ORDERED: NITROGLYCERIN SL TABS 0.4 MG TAB SUBLINGUAL PRN (13:43)
[2023-11-11] MEDS ORDERED: SODIUM CHLORIDE 0.9% 500 ML 500 ML IV STA (14:14)
[2023-11-11] MEDS ORDERED: ONDANSETRON 4 MG/2 ML VIAL IVP PRN (14:22)
[2023-11-11] MEDS ORDERED: NALOXONE 0.4 MG/ML 1 ML VIAL IV PRN (14:22)
[2023-11-11] MEDS ORDERED: ACETAMINOPHEN TAB 325 MG TAB PO PRN (14:22)
[2023-11-11] MEDS ORDERED: AZITHROMYCIN 500 MG TAB PO SCH (14:30)
--- NOTE | 2023-11-11 14:46 | P.HPIM ---
History of Present Illness H&P Date: 11/11/23 Chief Complaint: Shortness of breath * 73-year-old patient with past medical history significant for coronary artery disease, asthma, hyperlipidemia, rheumatoid arthritis, history of coronary artery bypass, who was recently admitted September 2023 with episode of TIA presents to the emergency department with complaints of shortness of breath. * Patient was having symptoms for approximately 1 week however she was noted to be increased weak, chills, shortness of breath, chest congestion and productive cough. Patient complained of yellow-colored phlegm. Patient states she finished a course of steroid however she did not have any relief. Patient also states he took azithromycin outpatient * Patient denies associated chest pain however does complain of cough and sputum production * Workup initiated ER include WBC count of 6.4 hemoglobin 14 platelet count of 148 * INR of 1.1, * Serum chemistry shows sodium 127 potassium 3.6 chloride 97 BUN 17 creatinine 0.67 glucose 106 * Patient was noted to have magnesium 1.3 bilirubin of 1.5 * Troponin obtained 0.081, N-terminal proBNP 666 * Patient tested positive for influenza REVIEW OF SYSTEMS: Chills, cough, sputum production, weakness CONSTITUTIONAL: No fever, no malaise, no fatigue. HEENT: No recent visual problems or hearing problems. Denied any sore throat. CARDIOVASCULAR: No chest pain, orthopnea, PND, no palpitations, no syncope. PULMONARY: Chills, cough, sputum production, weakness GASTROINTESTINAL: No diarrhea, no nausea, no vomiting, no abdominal pain. NEUROLOGICAL: No headaches, no weakness, no numbness. HEMATOLOGICAL: Denies any bleeding or petechiae. GENITOURINARY: Denies any burning micturition, frequency, or urgency. MUSCULOSKELETAL/RHEUMATOLOGICAL: Denies any joint pain, swelling, or any muscle pain. ENDOCRINE: Denies any polyuria or polydipsia. The rest of the 14-point review of systems is negative. PHYSICAL EXAMINATION: GENERAL: The patient is alert and oriented x3, ill appearance, nasal cannula in place HEENT: Pupils are round and equally reacting to light. EOMI. No scleral icterus. No conjunctival pallor. Normocephalic, atraumatic. No pharyngeal erythema. No thyromegaly. CARDIOVASCULAR: S1 and S2 present. No murmurs, rubs, or gallops. PULMONARY: Decreased breath sounds bilateral ABDOMEN: Soft, nontender, nondistended, normoactive bowel sounds. No palpable organomegaly. MUSCULOSKELETAL: No joint swelling or deformity. EXTREMITIES: No cyanosis, clubbing, or pedal edema. NEUROLOGICAL: Gross neurological examination did not reveal any focal deficits. SKIN: No rashes. Past Medical History Past Medical History: Asthma, Coronary Artery Disease (CAD), GERD/Reflux, Hyperlipidemia, Hypertension, Myocardial Infarction ([place]), Osteoarthritis (OA), Rheumatoid Arthritis (RA) Additional Past Medical History / Comment(s): occasional bronchitis., incisional hernia. Last Myocardial Infarction Date:: unknown History of Any Multi-Drug Resistant Organisms: None Reported Past Surgical History: Appendectomy, Cholecystectomy, Coronary Bypass/CABG, Heart Catheterization Additional Past Surgical History / Comment(s): CABG-2008, jessica breast biopsy, carpal tunnel sx, cataracts Past Anesthesia/Blood Transfusion Reactions: No Reported Reaction, Postoperative Nausea & Vomiting (PONV) Past Psychological History: No Psychological Hx Reported Smoking Status: Former smoker Past Alcohol Use History: Occasional Past Drug Use History: None Reported - Past Family History Sister(s) Family Medical History: Cancer Additional Family Medical History / Comment(s): breast Mother Family Medical History: Deep Vein Thrombosis (DVT) Medications and Allergies Home Medications Medication Instructions Recorded Confirmed Type Albuterol Sulfate [Proair Hfa] 2 puff INHALATION RT-Q6H PRN 03/13/16 11/11/23 History Aspirin EC [Ecotrin Low Dose] 81 mg PO HS 03/13/16 11/11/23 History Atorvastatin [Lipitor] 40 mg PO 03/13/16 11/11/23 History Etanercept [Enbrel Sureclick] 50 mg SQ TU 03/13/16 11/11/23 History Metoprolol Tartrate [Lopressor] 50 mg PO BID 03/13/16 11/11/23 History Omeprazole [PriLOSEC] 20 mg PO DAILY 03/13/16 11/11/23 History lisinopriL [Zestril] 20 mg PO BID 03/13/16 11/11/23 History metHOTREXate sodium 17.5 mg PO TH 03/13/16 11/11/23 History Ezetimibe [Zetia] 10 mg PO DAILY 10/16/22 11/11/23 History Calcium Carbonate/Vitamin D3 1 tab PO DAILY 09/30/23 11/11/23 History [Calcium 600 mg-D3 20 mcg (800 unit)] Zolpidem [Ambien] 5 mg PO HS PRN 09/30/23 11/11/23 History Budesonide/Formoterol Fumarate 2 puff INHALATION RT-BID 11/11/23 11/11/23 History [Symbicort 160-4.5 Mcg Inhaler] Meloxicam [Mobic] 15 mg PO DAILY 11/11/23 11/11/23 History Allergies Allergy/AdvReac Type Severity Reaction Status Date / Time povidone-iodine Allergy Itching Verified 11/11/23 13:23 [From Betadine] Physical Exam Vitals: Vital Signs Temp Pulse Resp BP Pulse Ox 11/11/23 10:58 97.7 F 101 H 22 123/65 91 L Intake and Output 11/10/23 11/11/23 11/11/23 22:59 06:59 14:59 Other: Weight 86.183 kg Results CBC & Chem 7: 11/11/23 11:32 11/11/23 11:32 Labs: Abnormal Lab Results - Last 24 Hours (Table) 11/11/23 11/11/23 11/11/23 Range/Units 11:32 11:32 11:32 RDW 16.0 H (11.5-15.5) % Plt Count 148 L (150-450) k/uL Lymphocytes # 0.8 L (1.0-4.8) k/uL Sodium 127 L (137-145) mmol/L Chloride 97 L (98-107) mmol/L Glucose 106 H (74-99) mg/dL Calcium 7.9 L (8.4-10.2) mg/dL Magnesium 1.3 L (1.6-2.3) mg/dL Total Bilirubin 1.5 H (0.2-1.3) mg/dL AST 81 H (14-36) U/L ALT 38 H (4-34) U/L Troponin I 0.081 H* (0.000-0.034) ng/mL Albumin 3.3 L (3.5-5.0) g/dL Influenza Type A (PCR) (Not Detectd) 11/11/23 Range/Units 11:43 RDW (11.5-15.5) % Plt Count (150-450) k/uL Lymphocytes # (1.0-4.8) k/uL Sodium (137-145) mmol/L Chloride (98-107) mmol/L Glucose (74-99) mg/dL Calcium (8.4-10.2) mg/dL Magnesium (1.6-2.3) mg/dL Total Bilirubin (0.2-1.3) mg/dL AST (14-36) U/L ALT (4-34) U/L Troponin I (0.000-0.034) ng/mL Albumin (3.5-5.0) g/dL Influenza Type A (PCR) Detected A (Not Detectd) Assessment and Plan Assessment: Assessment and plan * Acute hypoxic respiratory failure * Influenza A viral infection * Acute tracheobronchitis * asthma exacerbation * History of rheumatoid arthritis hypertension * Acute hyponatremia * Elevated troponin rule out ACS * In regards to acute hypoxic respiratory failure likely secondary to underlying viral infection/exacerbation of asthma. Continue patient on doxycyline , Mucinex, IV Solu-Medrol * In regards to tracheobronchitis continue azithromycin total 3 days, continue Mucinex and steroids * In regards to elevated troponin continue to trend cardiology consulted continue telemonitoring * In regards to acute hyponatremia continue to monitor electrolyte panel * CODE STATUS is full code Time with Patient: Greater than 30
[2023-11-11] MEDS: SODIUM CHLORIDE 0.9% 1,000 ML IV SCH ×2 (15:21→15:31)
[2023-11-11] MEDS: guaiFENesin 600 MG TABLET.ER PO SCH ×2 (15:29→21:07)
[2023-11-11] MEDS: methylPREDNISolone SOD SUCCI 40 MG/ML 1 ML VIAL IV SCH ×2 (15:30→21:07)
[2023-11-11] MEDS: OSELTAMIVIR 75 MG CAP PO SCH ×2 (15:30→21:06)
[2023-11-11] MEDS: MAGNESIUM SULFATE-D5W PMX 1 GM in DEXTROSE/WATER 1 100ML.BAG IVPB SCH ×2 (15:31→17:33)
[2023-11-11] MEDS: ALBUTEROL NEBULIZED 2.5 MG/3 ML INHALATION PRN ×2 (16:32→20:43)
[2023-11-11] MEDS: SYMBICORT 160-4.5 MCG INHALER INHALATION SCH (20:43)
[2023-11-11] MEDS: lisinopriL 20 MG TAB PO SCH (21:06)
[2023-11-11] MEDS: ASPIRIN 81 MG PO SCH (21:07)
[2023-11-11] MEDS: METOPROLOL TARTRATE 50 MG TAB PO SCH (21:07)
[2023-11-11] MEDS: DOXYCYCLINE 100 MG CAP PO SCH (21:07)
[2023-11-11] MEDS: ATORVASTATIN 40 MG TAB PO SCH (21:07)
[2023-11-11] MEDS: ZOLPIDEM 5 MG TAB PO PRN (21:10)
[2023-11-12] MEDS: guaiFENesin-DM 100-10MG/5ML 10 ML CUP PO SCH ×5 (00:35→23:56)
--- NOTE | 2023-11-12 00:44 | P.CNPUL ---
History of Present Illness Consult date: 11/12/23 Requesting physician: Bobby Valles Reason for consult: other (influenza A, asthma exacerbation) Chief complaint: Shortness of breath and persistent dry cough History of present illness: I am seeing this patient in new consultation today November after she presented to the emergency room yesterday morning complaining of infectious like symptoms. Patient is a 73-year-old white female with past medical history significant for asthma, coronary artery disease with previous CABG, possible TIA, GERD, rheumatoid arthritis, among other things. Starting last week, the patient began to experience headache, malaise, nausea, reduced appetite, diarrhea, subjective fevers, dry persistent cough, and shortness of breath. Her primary care provider is Dr. Melyssa Brooks. She was seen in the office, and was prescribed azithromycin, steroids, and Symbicort inhaler. Unfortunately, her symptoms persisted despite outpatient treatment, and she came to the emergency room yesterday. She did test positive for influenza A on arrival. She has been started on Tamiflu. Chest x-ray demonstrates mild diffuse interstitial densities, no focal infiltrates/consolidation. CBC on arrival unremarkable. No leukocytosis. BMP on arrival: Sodium 127, potassium 3.6, chloride 97, serum bicarb 22, BUN 17, creatinine 0.67, glucose 106. Lactic 1.4. Normal saline infusing at 75 mL/h. She is currently sitting up in bed, on 2 L/min nasal cannula, in no acute distress. SpO2 is 96%. She does have a persistent dry cough. She has not had any sputum production. Admits low-grade fevers. She was empirically started on doxycycline. She does have a external heart monitor. She reportedly had a questionable TIA back in September and is being evaluated for arrhythmias. Denies any chest pain, heart palpitations, syncopal events, or lower extremity swelling. Troponin 0.081, 0.072, and 0.08. NT proBNP 666. ECG shows a sinus rhythm with nonspecific T wave inversion and ST abnormalities. Vital signs are stable. Review of Systems REVIEW OF SYSTEMS: CONSTITUTIONAL: Denies any recent significant weight loss or weight gain. EYES: Denies change in vision. EARS, NOSE, MOUTH, THROAT: Admits mild headaches, clear nasal discharge CARDIOVASCULAR: Denies chest pain, palpitations or syncopal episodes. RESPIRATORY: See HPI GASTROINTESTINAL: Admits reduced appetite, nausea without vomiting, and intermittent diarrhea. Denies abdominal pain. Denies bloody or black stools GENITOURINARY: Denies hematuria, denies infections. MUSKULOSKELETAL: Denies pain, denies swelling. INTEGUMENTARY: Denies rash, denies eczema. NEUROLOGICAL: Denies recent memory loss, no recent seizure activity. PSYCHIATRIC: Denies anxiety, denies depression. HEMATOLOGIC/LYMPHATIC: Denies anemia, denies enlarged lymph node Past Medical History Past Medical History: Asthma, Coronary Artery Disease (CAD), GERD/Reflux, Hyperlipidemia, Hypertension, Myocardial Infarction ([place]), Osteoarthritis (OA), Rheumatoid Arthritis ([place]) Additional Past Medical History / Comment(s): occasional bronchitis., incisional hernia. Last Myocardial Infarction Date:: unknown History of Any Multi-Drug Resistant Organisms: None Reported Past Surgical History: Appendectomy, Cholecystectomy, Coronary Bypass/CABG, Heart Catheterization Additional Past Surgical History / Comment(s): CABG-2008, jessica breast biopsy, carpal tunnel sx, cataracts Past Anesthesia/Blood Transfusion Reactions: No Reported Reaction, Postoperative Nausea & Vomiting (PONV) Past Psychological History: No Psychological Hx Reported Smoking Status: Former smoker Past Alcohol Use History: Occasional Past Drug Use History: None Reported - Past Family History Sister(s) Family Medical History: Cancer Additional Family Medical History / Comment(s): breast Mother Family Medical History: Deep Vein Thrombosis (DVT) Medications and Allergies Home Medications Medication Instructions Recorded Confirmed Type Albuterol Sulfate [Proair Hfa] 2 puff INHALATION RT-Q6H PRN 03/13/16 11/11/23 History Aspirin EC [Ecotrin Low Dose] 81 mg PO 03/13/16 11/11/23 History Atorvastatin [Lipitor] 40 mg PO 03/13/16 11/11/23 History Etanercept [Enbrel Sureclick] 50 mg SQ TU 03/13/16 11/11/23 History Metoprolol Tartrate [Lopressor] 50 mg PO BID 03/13/16 11/11/23 History Omeprazole [PriLOSEC] 20 mg PO DAILY 03/13/16 11/11/23 History lisinopriL [Zestril] 20 mg PO BID 03/13/16 11/11/23 History metHOTREXate sodium 17.5 mg PO TH 03/13/16 11/11/23 History Ezetimibe [Zetia] 10 mg PO DAILY 10/16/22 11/11/23 History Calcium Carbonate/Vitamin D3 1 tab PO DAILY 09/30/23 11/11/23 History [Calcium 600 mg-D3 20 mcg (800 unit)] Zolpidem [Ambien] 5 mg PO HS PRN 09/30/23 11/11/23 History Budesonide/Formoterol Fumarate 2 puff INHALATION RT-BID 11/11/23 11/11/23 History [Symbicort 160-4.5 Mcg Inhaler] Meloxicam [Mobic] 15 mg PO DAILY 11/11/23 11/11/23 History Allergies Allergy/AdvReac Type Severity Reaction Status Date / Time povidone-iodine Allergy Itching Verified 11/11/23 13:23 [From Betadine] Physical Exam Vitals: Vital Signs Temp Pulse Resp BP Pulse Ox 11/11/23 22:34 79 20 130/68 96 11/11/23 21:05 111 H 20 129/51 96 11/11/23 20:58 116 H 11/11/23 20:43 94 11/11/23 17:33 111 H 18 140/78 95 11/11/23 16:27 94 95 11/11/23 15:26 95 18 118/70 94 L 11/11/23 10:58 97.7 F 101 H 22 123/65 91 L Intake and Output 11/11/23 11/11/23 11/12/23 14:59 22:59 06:59 Other: Weight 86.183 kg GENERAL EXAM: Alert, 73-year-old white obese female, comfortable in no apparent distress. HEAD: Normocephalic and atraumatic EYES: Normal reaction of pupils, equal size. NOSE: Clear with pink turbinates. THROAT: No erythema or exudates. NECK: No masses, no JVD. CHEST: No chest wall deformity. LUNGS: Equal air entry with scattered inspiratory crackles and rhonchi. On 2 L/min nasal cannula. No conversational dyspnea or accessory muscle use.. CVS: S1 and S2 normal with no audible murmur, regular rhythm. No extra heart sounds ABDOMEN: No hepatosplenomegaly, active bowel sounds, no guarding or rigidity. SPINE: No scoliosis or deformity SKIN: No rashes CENTRAL NERVOUS SYSTEM: No focal deficits, tone is normal in all 4 extremities. EXTREMITIES: There is no peripheral edema, clubbing, or cyanosis. Peripheral pulses are intact. Results - Laboratory Findings CBC and BMP: 11/11/23 11:32 11/11/23 11:32 PT/INR, D-dimer PT 11.8 sec (10.0-12.5) 11/11/23 11:32 INR 1.1 (<1.2) 11/11/23 11:32 Abnormal lab findings: Abnormal Labs 11/11/23 11/11/23 11/11/23 11:32 11:32 11:32 RDW 16.0 H Plt Count 148 L Lymphocytes # 0.8 L Sodium 127 L Chloride 97 L Glucose 106 H Calcium 7.9 L Magnesium 1.3 L Total Bilirubin 1.5 H AST 81 H ALT 38 H Troponin I 0.081 H* Albumin 3.3 L Influenza Type A (PCR) 11/11/23 11/11/23 11/11/23 11:43 14:22 19:36 RDW Plt Count Lymphocytes # Sodium Chloride Glucose Calcium Magnesium Total Bilirubin AST ALT Troponin I 0.072 H* 0.080 H* Albumin Influenza Type A (PCR) Detected A - Diagnostic Findings Chest x-ray: image reviewed Assessment and Plan Assessment: Acute hypoxemic respiratory failure, currently on 2 L/min nasal cannula, secondary to acute influenza A tracheobronchitis and mild asthma exacerbation. Chest x-ray demonstrates mild diffuse interstitial densities concerning for possible bronchitis, no focal infiltrates/consolidation. Elevated troponins, rule out NSTEMI Hyponatremia, possibly secondary to poor oral intake History of mild intermittent asthma Hypertension History of hyperlipidemia Coronary artery disease, with previous history of CABG History of possible TIA History of GERD without esophagitis History of rheumatoid arthritis Obesity, with a BMI of 34.8 kg/m Remote history of smoking/tobacco dependence Plan: Patient's medications, labs, chest x-ray reviewed Continue supplemental oxygen to maintain oxygen saturation greater than 92% Continue commendation of DuoNebs [id number], Symbicort inhaler, and IV Solu-Medrol Continue Tamiflu twice daily for 5 days Patient was placed on empiric antibiotics on arrival. Lovenox for DVT prophylaxis and Protonix for GI prophylaxis. Continue IV hydration, however, she is tolerating oral fluids. Cardiology has been consulted We will also continue to follow I have personally seen and examined the patient, performed the documentation and the assessment and plan as written. Number of minutes spent on the visit:20 Time with Patient: Greater than 30
[2023-11-12 07:00] LABS: Basophils % (A) 0 %; Eosinophils % (A) 0 %; HCT 38.4 % (34.0-46.0); HGB 13.1 gm/dL (11.4-16.0); Lymphocytes # (A) 0.5 k/uL (1.0-4.8); Lymphocytes % (A) 25 %; MCH 30.5 pg (25.0-35.0); MCHC 34.2 g/dL (31.0-37.0); MCV 89.1 fL (80.0-100.0); Mean Platelet Volume 7.9; Monocytes # (A) 0.1 k/uL (0-1.0); Monocytes % (A) 2 %; Neutrophils # (A) 1.5 k/uL (1.3-7.7); Neutrophils % (A) 71 %; Platelet Count 107 k/uL (150-450); RBC 4.31 m/uL (3.80-5.40); RDW 15.6 % (11.5-15.5); WBC 2.1 k/uL (3.8-10.6)
[2023-11-12 08:08] LABS: African American GFR (CKD) >90 (>60 ml/min/1.73 sqM); Anion Gap 4 mmol/L; Blood Urea Nitrogen 12 mg/dL (7-17); C Reactive Protein 6.8 mg/dL (<1.0); Calcium 7.9 mg/dL (8.4-10.2); Carbon Dioxide 27 mmol/L (22-30); Chloride 98 mmol/L (98-107); Glucose 137 mg/dL (74-99); Magnesium 2.1 mg/dL (1.6-2.3); Non-African American GFR(CKD) >90 (>60 ml/min/1.73 sqM); Phosphorus 3.4 mg/dL (2.5-4.5); Sodium 129 mmol/L (137-145)
[2023-11-12] MEDS: SODIUM CHLORIDE 0.9% 1,000 ML IV SCH ×3 (08:26→19:17)
[2023-11-12] MEDS: methylPREDNISolone SOD SUCCI 125 MG/2 ML VIAL IV SCH ×3 (08:27→21:04)
[2023-11-12] MEDS: ENOXAPARIN 40 MG/0.4 ML SYRINGE SQ SCH (08:28)
[2023-11-12] MEDS: PANTOPRAZOLE 40 MG TABLET PO SCH (08:29)
[2023-11-12] MEDS: EZETIMIBE 10 MG TAB PO SCH (08:29)
[2023-11-12] MEDS: CALCIUM CARB-VIT D 500 MG-5 MCG TAB PO SCH ×2 (09:12→09:13)
[2023-11-12] MEDS: OSELTAMIVIR 75 MG CAP PO SCH ×2 (09:12→21:08)
[2023-11-12] MEDS: DOXYCYCLINE 100 MG CAP PO SCH ×2 (09:12→21:04)
[2023-11-12] MEDS: METOPROLOL TARTRATE 50 MG TAB PO SCH ×2 (09:12→21:04)
[2023-11-12] MEDS: lisinopriL 20 MG TAB PO SCH ×2 (09:12→21:04)
[2023-11-12] MEDS: SYMBICORT 160-4.5 MCG INHALER INHALATION SCH ×2 (09:17→20:58)
[2023-11-12] MEDS: IPRATROPIUM-ALBUTEROL 3 ML NEB INHALATION SCH ×4 (09:17→20:58)
[2023-11-12 11:47] LABS: Glucose,Whole Blood 126 mg/dL (70-110)
--- NOTE | 2023-11-12 13:05 | P.PN ---
Subjective Progress Note Date: 11/12/23 * 73-year-old patient with past medical history significant for coronary artery disease, asthma, hyperlipidemia, rheumatoid arthritis, history of coronary artery bypass, who was recently admitted September 2023 with episode of TIA presents to the emergency department with complaints of shortness of breath. * Patient was having symptoms for approximately 1 week however she was noted to be increased weak, chills, shortness of breath, chest congestion and productive cough. Patient complained of yellow-colored phlegm. Patient states she finished a course of steroid however she did not have any relief. Patient also states he took azithromycin outpatient * Patient denies associated chest pain however does complain of cough and sputum production * Workup initiated ER include WBC count of 6.4 hemoglobin 14 platelet count of 148 * INR of 1.1, * Serum chemistry shows sodium 127 potassium 3.6 chloride 97 BUN 17 creatinine 0.67 glucose 106 * Patient was noted to have magnesium 1.3 bilirubin of 1.5 * Troponin obtained 0.081, N-terminal proBNP 666 * Patient tested positive for influenza * 11/12/2023 : Patient seen and evaluated at bedside, patient states breathing has improved, CRP 6.8, troponin remains flat at 0.08, WBC count 2.1, noted to have lymphocyte count drop secondary to viral infection sodium 129 blood glucose 137. Continue patient on breathing treatment, continue patient on current medical management REVIEW OF SYSTEMS: Chills RESOLVED , cough, sputum production, weakness improved CONSTITUTIONAL: No fever, no malaise, no fatigue. HEENT: No recent visual problems or hearing problems. Denied any sore throat. CARDIOVASCULAR: No chest pain, orthopnea, PND, no palpitations, no syncope. PULMONARY:Chills RESOLVED , cough, sputum production, weakness improved GASTROINTESTINAL: No diarrhea, no nausea, no vomiting, no abdominal pain. NEUROLOGICAL: No headaches, no weakness, no numbness. HEMATOLOGICAL: Denies any bleeding or petechiae. GENITOURINARY: Denies any burning micturition, frequency, or urgency. MUSCULOSKELETAL/RHEUMATOLOGICAL: Denies any joint pain, swelling, or any muscle pain. ENDOCRINE: Denies any polyuria or polydipsia. PHYSICAL EXAMINATION: GENERAL: The patient is alert and oriented x3, ill appearance, nasal cannula in place HEENT: Pupils are round and equally reacting to light. EOMI. No scleral icterus. No conjunctival pallor. Normocephalic, CARDIOVASCULAR: S1 and S2 present. No murmurs, rubs, or gallops. PULMONARY: Decreased breath sounds bilateral ABDOMEN: Soft, nontender, nondistended, normoactive bowel sounds. No palpable organomegaly. MUSCULOSKELETAL: No joint swelling or deformity. EXTREMITIES: No cyanosis, clubbing, or pedal edema. NEUROLOGICAL: Gross neurological examination did not reveal any focal deficits. SKIN: No rashes. Objective - Vital Signs Vital signs: Vital Signs Temp 97.7 F 11/11/23 10:58 Pulse 72 11/12/23 13:02 Resp 16 11/12/23 09:48 BP 134/77 11/12/23 09:48 Pulse Ox 96 11/12/23 09:48 FiO2 Intake & Output 11/11/23 11/12/23 11/12/23 18:59 06:59 18:59 Weight 86.183 kg 86.183 kg Other: Voiding Method Toilet - Labs CBC & Chem 7: 11/12/23 06:21 11/12/23 06:21 Labs: Abnormal Lab Results - Last 24 Hours (Table) 11/11/23 11/11/23 11/12/23 Range/Units 14:22 19:36 06:21 WBC (3.8-10.6) k/uL RDW (11.5-15.5) % Plt Count (150-450) k/uL Lymphocytes # (1.0-4.8) k/uL Sodium 129 L (137-145) mmol/L Glucose 137 H (74-99) mg/dL POC Glucose (mg/dL) (70-110) mg/dL Calcium 7.9 L (8.4-10.2) mg/dL Troponin I 0.072 H* 0.080 H* (0.000-0.034) ng/mL C-Reactive Protein 6.8 H (<1.0) mg/dL 11/12/23 11/12/23 Range/Units 06:21 11:45 WBC 2.1 L (3.8-10.6) k/uL RDW 15.6 H (11.5-15.5) % Plt Count 107 L (150-450) k/uL Lymphocytes # 0.5 L (1.0-4.8) k/uL Sodium (137-145) mmol/L Glucose (74-99) mg/dL POC Glucose (mg/dL) 126 H (70-110) mg/dL Calcium (8.4-10.2) mg/dL Troponin I (0.000-0.034) ng/mL C-Reactive Protein (<1.0) mg/dL Assessment and Plan Assessment: Assessment and plan * Acute hypoxic respiratory failure * Influenza A viral infection * Acute tracheobronchitis * asthma exacerbation * History of rheumatoid arthritis hypertension * Acute hyponatremia * Elevated troponin secondary to type II HI * In regards to acute hypoxic respiratory failure likely secondary to underlying viral infection/exacerbation of asthma. Continue patient on doxycyline day 2 , Mucinex, IV Solu-Medrol * In regards to tracheobronchitis continue azithromycin total 3 days, continue Mucinex and steroids * In regards to elevated troponin continue to trend cardiology consulted continue telemonitoring * In regards to acute hyponatremia continue to monitor electrolyte panel * CODE STATUS is full code
[2023-11-12 15:30] LABS: Chol/HDL Ratio 2.75 Ratio; LDL Cholesterol,Calculated 30.1 mg/dL (0.0-131.0)
--- NOTE | 2023-11-12 16:40 | P.CRDCN ---
History of Present Illness Consult date: 11/12/23 Consult reason: shortness of breath, other (elevated troponins) Chief complaint: shortness of breath, chest pain, flu + History of present illness: History of present illness: Patient is a pleasant 73-year-old female with significant past medical history of CAD status post CABG in 2008, asthma, hyperlipidemia, rheumatoid arthritis, TIA who presents with worsening shortness of breath. She does follow with Dr. Sun in the office and saw him a couple weeks ago after her TIA in September 2023. She currently had a bubble study done 1 week ago and has 30-day event monitor on presently. Prior echo from 10/01/2023 with EF 45-50%, mildmoderate mitral regurgitation, mild aortic regurgitation. MRI brain from 09/2023 with no acute findings. Labs reviewed: WBC 2.1, platelets 107, sodium 127, potassium 4.0, creatinine 0.53, CRP 6.8, troponin elevated 0.081, 0.072, 0.080, BNP 666. EKG shows sinus rhythm with LVH. She states that she has been having shortness of breath, chest pain with coughing, decreased appetite, and fatigue with fever and chills for the past 8 days. She is flu positive. She does report that she is feeling a little better this morning. She denies any chest pain presently. Denies any dizziness or syncope. REVIEW OF SYSTEMS: No fever or chills. No diaphoresis. Patient denies headache, dizziness, blurred vision, double vision. Patient denies any stomach discomfort. No nausea, vomiting. No hematochezia. No hematemesis. Denies any black stools or blood in his stools. Denies dysuria or hematuria. No muscle weakness or numbness. No chest pain or pressure. Reports shortness of breath and cough. PHYSICAL EXAMINATION: This is a 73-year-old female in no apparent distress at the time of my examination. HEENT: Head is atraumatic, normocephalic. Pupils are equal, round. Sclerae anict russell. Conjunctivae are clear. Mucous membranes of the mouth are moist. Neck is supple. There is no jugular venous distention. No carotid bruit is heard. CHEST EXAMINATION: Lungs with rhonchi. No chest wall tenderness is noted on palpation or with deep breathing. HEART EXAMINATION: Heart regular rate and rhythm. S1, S2 heard. No murmurs, gallops or rub. ABDOMEN: Soft, nontender. Bowel sounds are heard. EXTREMITIES: 2+ peripheral pulses with no evidence of peripheral edema and no calf tenderness noted. NEUROLOGIC EXAMINATION: Patient is awake, alert and oriented x3. IMPRESSION AND PLAN: CAD status post CABG in 2008 Hyperlipidemia TIA Rheumatoid arthritis Asthma Dyslipidemia Hyponatremia NSTEMI Influenza infection PLAN: No need to repeat echo. She is currently wearing 30-day event monitor for TIA workup. NSTEMI likely type II related to current infection with influenza. Continue with current regimen. Cardiology to sign off please call with any concerns or worsening symptoms. Otherwise follow-up as scheduled in outpatient clinic with Dr. Sun. I am dictating on behalf of Dr. Maxime Sainz's history/physical and assessment/plan. Past Medical History Past Medical History: Asthma, Coronary Artery Disease (CAD), GERD/Reflux, Hyperlipidemia, Hypertension, Myocardial Infarction ([place]), Osteoarthritis (OA), Rheumatoid Arthritis (RA) Additional Past Medical History / Comment(s): occasional bronchitis., incisional hernia. Last Myocardial Infarction Date:: unknown History of Any Multi-Drug Resistant Organisms: None Reported Past Surgical History: Appendectomy, Cholecystectomy, Coronary Bypass/CABG, Heart Catheterization Additional Past Surgical History / Comment(s): CABG-2008, jessica breast biopsy, car pal tunnel sx, cataracts Past Anesthesia/Blood Transfusion Reactions: No Reported Reaction, Postoperative Nausea & Vomiting (PONV) Past Psychological History: No Psychological Hx Reported Smoking Status: Former smoker Past Alcohol Use History: Occasional Past Drug Use History: None Reported - Past Family History Sister(s) Family Medical History: Cancer Additional Family Medical History / Comment(s): breast Mother Family Medical History: Deep Vein Thrombosis (DVT) Medications and Allergies Home Medications Medication Instructions Recorded Confirmed Type Albuterol Sulfate [Proair Hfa] 2 puff INHALATION RT-Q6H PRN 03/13/16 11/11/23 History Aspirin EC [Ecotrin Low Dose] 81 mg PO HS 03/13/16 11/11/23 History Atorvastatin [Lipitor] 40 mg PO HS 03/13/16 11/11/23 History Etanercept [Enbrel Sureclick] 50 mg SQ TU 03/13/16 11/11/23 History Metoprolol Tartrate [Lopressor] 50 mg PO BID 03/13/16 11/11/23 History Omeprazole [PriLOSEC] 20 mg PO DAILY 03/13/16 11/11/23 History lisinopriL [Zestril] 20 mg PO BID 03/13/16 11/11/23 History metHOTREXate sodium 17.5 mg PO TH 03/13/16 11/11/23 History Ezetimibe [Zetia] 10 mg PO DAILY 10/16/22 11/11/23 History Calcium Carbonate/Vitamin D3 1 tab PO DAILY 09/30/23 11/11/23 History [Calcium 600 mg-D3 20 mcg (800 unit)] Zolpidem [Ambien] 5 mg PO HS PRN 09/30/23 11/11/23 History Budesonide/Formoterol Fumarate 2 puff INHALATION RT-BID 11/11/23 11/11/23 History [Symbicort 160-4.5 Mcg Inhaler] Meloxicam [Mobic] 15 mg PO DAILY 11/11/23 11/11/23 History Allergies Allergy/AdvReac Type Severity Reaction Status Date / Time povidone-iodine Allergy Itching Verified 11/11/23 13:23 [From Betadine] Physical Exam Vitals: Vital Signs Temp Pulse Resp BP Pulse Ox 11/12/23 08:35 66 14 128/65 94 L 11/12/23 08:30 91 L 11/12/23 02:00 62 18 132/66 95 11/12/23 01:00 72 18 117/56 95 11/12/23 00:37 72 18 125/68 96 11/11/23 22:34 79 20 130/68 96 11/11/23 21:05 111 H 20 129/51 96 11/11/23 20:58 116 H 11/11/23 20:43 94 11/11/23 17:33 111 H 18 140/78 95 11/11/23 16:27 94 95 11/11/23 15:26 95 18 118/70 94 L 11/11/23 10:58 97.7 F 101 H 22 123/65 91 L Results 11/12/23 06:21 11/12/23 06:21 Cardiac Enzymes 11/11/23 11/11/23 11/11/23 Range/Units 11:32 11:32 14:22 AST 81 H (14-36) U/L Troponin I 0.081 H* 0.072 H* (0.000-0.034) ng/mL 11/11/23 Range/Units 19:36 AST (14-36) U/L Troponin I 0.080 H* (0.000-0.034) ng/mL Coagulation 11/11/23 Range/Units 11:32 PT 11.8 (10.0-12.5) sec APTT 23.3 (22.0-30.0) sec CBC 11/11/23 11/12/23 Range/Units 11:32 06:21 WBC 6.4 2.1 L (3.8-10.6) k/uL RBC 4.82 4.31 (3.80-5.40) m/uL Hgb 14.4 13.1 (11.4-16.0) gm/dL Hct 41.9 38.4 (34.0-46.0) % Plt Count 148 L 107 L (150-450) k/uL Comprehensive Metabolic Panel 11/11/23 11/12/23 Range/Units 11:32 06:21 Sodium 127 L 129 L (137-145) mmol/L Potassium 3.6 4.0 (3.5-5.1) mmol/L Chloride 97 L 98 (98-107) mmol/L Carbon Dioxide 22 27 (22-30) mmol/L BUN 17 12 (7-17) mg/dL Creatinine 0.67 0.53 (0.52-1.04) mg/dL Glucose 106 H 137 H (74-99) mg/dL Calcium 7.9 L 7.9 L (8.4-10.2) mg/dL AST 81 H (14-36) U/L ALT 38 H (4-34) U/L Alkaline Phosphatase 100 (38-126) U/L Total Protein 6.5 (6.3-8.2) g/dL Albumin 3.3 L (3.5-5.0) g/dL Current Medications Generic Name Dose Route Start Last Admin Trade Name Freq PRN Reason Stop Dose Admin Acetaminophen 650 mg 11/11/23 14:22 Acetaminophen Tab 325 Mg Tab PO Q6HR PRN Mild Pain or Fever > 100.5 Albuterol Sulfate 2.5 mg 11/11/23 14:21 11/11/23 20:43 Albuterol Nebulized 2.5 Mg/3 Ml INHALATION 2.5 mg RT-Q6H PRN Administration Shortness Of Breath Albuterol/Ipratropium 3 ml 11/12/23 08:00 11/12/23 09:17 Ipratropium-Albuterol 3 Ml Neb INHALATION 3 ml RT-QID BHAVIN Administration Aspirin 81 mg 11/11/23 21:00 11/11/23 21:07 Aspirin 81 Mg PO 81 mg HS BHAVIN Administration Atorvastatin Calcium 40 mg 11/11/23 21:00 11/11/23 21:07 Atorvastatin 40 Mg Tab PO 40 mg HS BHAVIN Administration Budesonide/Formoterol Fumarate 2 puff 11/11/23 20:00 11/12/23 09:17 Symbicort 160-4.5 Mcg Inhaler INHALATION 2 puff RT-BID BHAVIN Administration Calcium Carbonate 1 each 11/12/23 09:00 11/12/23 09:13 Calcium Carb-Vit D 500 Mg-5 Mcg Tab PO 1 each DAILY BHAVIN Administration Doxycycline Monohydrate 100 mg 11/11/23 21:00 11/12/23 09:12 Doxycycline 100 Mg Cap PO 100 mg BID BHAVIN Administration Protocol Ezetimibe 10 mg 11/12/23 09:00 11/12/23 08:29 Ezetimibe 10 Mg Tab PO 10 mg DAILY BHAVIN Administration Enoxaparin Sodium 40 mg 11/12/23 09:00 11/12/23 08:28 Enoxaparin 40 Mg/0.4 Ml Syringe SQ 40 mg DAILY BHAVIN Administration Guaifenesin/Dextromethorphan 10 ml 11/12/23 00:12 11/12/23 08:34 Guaifenesin-Dm 100-10mg/5ml 10 Ml Cup PO 10 ml Q6HR BHAVIN Administration Sodium Chloride 1,000 mls @ 20 mls/hr 11/11/23 14:30 11/11/23 15:21 Saline 0.9% IV Not Given .Q24H BHAVIN Sodium Chloride 1,000 mls @ 75 mls/hr 11/11/23 15:00 11/12/23 08:26 Saline 0.9% IV 75 mls/hr .[id number] BHAVIN Administration Lisinopril 20 mg 11/11/23 21:00 11/12/23 09:12 Lisinopril 20 Mg Tab PO 20 mg BID BHAVIN Administration Methylprednisolone Sodium Succinate 60 mg 11/12/23 06:00 11/12/23 08:27 Methylprednisolone Sod Succi 125 Mg/2 Ml Vial IV 60 mg Q6HR BHAVIN Administration Metoprolol Tartrate 50 mg 11/11/23 21:00 11/12/23 09:12 Metoprolol Tartrate 50 Mg Tab PO 50 mg BID BHAVIN Administration Naloxone HCl 0.2 mg 11/11/23 14:22 Naloxone 0.4 Mg/Ml 1 Ml Vial IV Q2M PRN Opioid Reversal Nitroglycerin 0.4 mg 11/11/23 13:43 Nitroglycerin Sl Tabs 0.4 Mg Tab SUBLINGUAL Q5M PRN Chest Pain Ondansetron HCl 4 mg 11/11/23 14:22 Ondansetron 4 Mg/2 Ml Vial IVP Q8HR PRN Nausea And Vomiting Oseltamivir Phosphate 75 mg 11/11/23 14:30 11/12/23 09:12 Oseltamivir 75 Mg Cap PO 11/15/23 21:01 75 mg Q12HR BHAVIN Administration Protocol Pantoprazole Sodium 40 mg 11/12/23 07:30 11/12/23 08:29 Pantoprazole 40 Mg Tablet PO 40 mg [id number] BHAVIN Administration Zolpidem Tartrate 5 mg 11/11/23 14:21 11/11/23 21:10 Zolpidem 5 Mg Tab PO 5 mg HS PRN Administration Insomnia 11/12/23 06:21 11/12/23 06:21
[2023-11-12 16:47] LABS: Glucose,Whole Blood 135 mg/dL (70-110)
[2023-11-12 20:10] LABS: Glucose,Whole Blood 150 mg/dL (70-110)
[2023-11-12] MEDS: ZOLPIDEM 5 MG TAB PO PRN (21:04)
[2023-11-12] MEDS: ATORVASTATIN 40 MG TAB PO SCH (21:04)
[2023-11-12] MEDS: ASPIRIN 81 MG PO SCH (21:04)
[2023-11-13] MEDS: SODIUM CHLORIDE 0.9% 1,000 ML IV SCH ×2 (06:22→16:13)
[2023-11-13] MEDS: PANTOPRAZOLE 40 MG TABLET PO SCH (06:23)
[2023-11-13 06:24] LABS: Glucose,Whole Blood 116 mg/dL (70-110)
[2023-11-13] MEDS: SYMBICORT 160-4.5 MCG INHALER INHALATION SCH ×2 (08:34→20:44)
[2023-11-13] MEDS: IPRATROPIUM-ALBUTEROL 3 ML NEB INHALATION SCH ×4 (08:34→20:44)
[2023-11-13] MEDS: METOPROLOL TARTRATE 50 MG TAB PO SCH ×2 (09:01→19:52)
[2023-11-13] MEDS: OSELTAMIVIR 75 MG CAP PO SCH ×2 (09:01→19:52)
[2023-11-13] MEDS: DOXYCYCLINE 100 MG CAP PO SCH ×2 (09:01→19:52)
[2023-11-13] MEDS: lisinopriL 20 MG TAB PO SCH ×2 (09:01→19:52)
[2023-11-13] MEDS: CALCIUM CARB-VIT D 500 MG-5 MCG TAB PO SCH (09:01)
[2023-11-13] MEDS: methylPREDNISolone SOD SUCCI 125 MG/2 ML VIAL IV SCH (09:02)
[2023-11-13 09:04] LABS: African American GFR (CKD) >90 (>60 ml/min/1.73 sqM); Anion Gap 9 mmol/L; Blood Urea Nitrogen 13 mg/dL (7-17); Calcium 8.2 mg/dL (8.4-10.2); Carbon Dioxide 21 mmol/L (22-30); Chloride 102 mmol/L (98-107); Glucose 139 mg/dL (74-99); Non-African American GFR(CKD) >90 (>60 ml/min/1.73 sqM); Potassium 3.7 mmol/L (3.5-5.1); Sodium 132 mmol/L (137-145)
[2023-11-13] MEDS: ENOXAPARIN 40 MG/0.4 ML SYRINGE SQ SCH (09:06)
[2023-11-13 09:09] LABS: HCT 39.1 % (34.0-46.0); MCH 29.7 pg (25.0-35.0); MCHC 33.2 g/dL (31.0-37.0); MCV 89.5 fL (80.0-100.0); Mean Platelet Volume 8.9; RBC 4.37 m/uL (3.80-5.40); RDW 15.9 % (11.5-15.5); WBC 9.3 k/uL (3.8-10.6)
[2023-11-13 09:12] LABS: Platelet Count 186 k/uL (150-450)
[2023-11-13 09:42] VITALS: BMI 34.7
[2023-11-13 11:50] LABS: Glucose,Whole Blood 123 mg/dL (70-110)
--- NOTE | 2023-11-13 11:59 | P.PN ---
Subjective Progress Note Date: 11/13/23 * 73-year-old patient with past medical history significant for coronary artery disease, asthma, hyperlipidemia, rheumatoid arthritis, history of coronary artery bypass, who was recently admitted September 2023 with episode of TIA presents to the emergency department with complaints of shortness of breath. * Patient was having symptoms for approximately 1 week however she was noted to be increased weak, chills, shortness of breath, chest congestion and productive cough. Patient complained of yellow-colored phlegm. Patient states she finished a course of steroid however she did not have any relief. Patient also states he took azithromycin outpatient * Patient denies associated chest pain however does complain of cough and sputum production * Workup initiated ER include WBC count of 6.4 hemoglobin 14 platelet count of 148 * INR of 1.1, * Serum chemistry shows sodium 127 potassium 3.6 chloride 97 BUN 17 creatinine 0.67 glucose 106 * Patient was noted to have magnesium 1.3 bilirubin of 1.5 * Troponin obtained 0.081, N-terminal proBNP 666 * Patient tested positive for influenza * 11/12/2023 : Patient seen and evaluated at bedside, patient states breathing has improved, CRP 6.8, troponin remains flat at 0.08, WBC count 2.1, noted to have lymphocyte count drop secondary to viral infection sodium 129 blood glucose 137. Continue patient on breathing treatment, continue patient on current medical management * 11/13/2023: Patient seen and evaluated bedside, patient states he feels better. Blood work reviewed CBC improved renal function within normal limits, Na 132 REVIEW OF SYSTEMS: Chills RESOLVED , cough, sputum production, weakness improved CONSTITUTIONAL: No fever, no malaise, no fatigue. HEENT: No recent visual problems or hearing problems. Denied any sore throat. CARDIOVASCULAR: No chest pain, orthopnea, PND, no palpitations, no syncope. PULMONARY:Chills RESOLVED , cough, sputum production, weakness improved GASTROINTESTINAL: No diarrhea, no nausea, no vomiting, no abdominal pain. NEUROLOGICAL: No headaches, no weakness, no numbness. HEMATOLOGICAL: Denies any bleeding or petechiae. GENITOURINARY: Denies any burning micturition, frequency, or urgency. MUSCULOSKELETAL/RHEUMATOLOGICAL: Denies any joint pain, swelling, or any muscle pain. ENDOCRINE: Denies any polyuria or polydipsia. PHYSICAL EXAMINATION: GENERAL: The patient is alert and oriented x3, ill appearance, nasal cannula removed HEENT: Pupils are round and equally reacting to light. EOMI. No scleral icterus. No conjunctival pallor. Normocephalic, CARDIOVASCULAR: S1 and S2 present. No murmurs, rubs, or gallops. PULMONARY: Decreased breath sounds bilateral ABDOMEN: Soft, nontender, nondistended, normoactive bowel sounds. No palpable organomegaly. MUSCULOSKELETAL: No joint swelling or deformity. EXTREMITIES: No cyanosis, clubbing, or pedal edema. NEUROLOGICAL: Gross neurological examination did not reveal any focal deficits. SKIN: No rashes. Objective - Vital Signs Vital signs: Vital Signs Temp 97.6 F 11/13/23 09:10 Pulse 77 11/13/23 09:10 Resp 18 11/13/23 09:10 BP 114/68 11/13/23 09:10 Pulse Ox 91 L 11/13/23 09:10 FiO2 Intake & Output 11/12/23 11/13/23 11/13/23 18:59 06:59 18:59 Intake Total 90 540 240 Output Total 0 Balance 90 540 240 Weight 86.183 kg 86.183 kg Intake: Oral 90 540 240 Output: Gastric Drainage 0 Urine 0 Stool 0 Urine/Stool Mix 0 Emesis 0 Oral Regurgitation 0 Other 0 Other: Voiding Method Toilet Toilet Toilet # Voids 0 2 # Bowel Movements 0 - Labs CBC & Chem 7: 11/13/23 08:09 11/13/23 08:09 Labs: Abnormal Lab Results - Last 24 Hours (Table) 11/12/23 11/12/23 11/12/23 Range/Units 06:21 16:43 20:08 RDW (11.5-15.5) % Sodium (137-145) mmol/L Carbon Dioxide (22-30) mmol/L Glucose (74-99) mg/dL POC Glucose (mg/dL) 135 H 150 H (70-110) mg/dL Calcium (8.4-10.2) mg/dL HDL Cholesterol 25.50 L (40.00-60.00) mg/dL 11/13/23 11/13/23 11/13/23 Range/Units 06:20 08:09 08:09 RDW 15.9 H (11.5-15.5) % Sodium 132 L (137-145) mmol/L Carbon Dioxide 21 L (22-30) mmol/L Glucose 139 H (74-99) mg/dL POC Glucose (mg/dL) 116 H (70-110) mg/dL Calcium 8.2 L (8.4-10.2) mg/dL HDL Cholesterol (40.00-60.00) mg/dL 11/13/23 Range/Units 11:48 RDW (11.5-15.5) % Sodium (137-145) mmol/L Carbon Dioxide (22-30) mmol/L Glucose (74-99) mg/dL POC Glucose (mg/dL) 123 H (70-110) mg/dL Calcium (8.4-10.2) mg/dL HDL Cholesterol (40.00-60.00) mg/dL Assessment and Plan Assessment: Assessment and plan * Acute hypoxic respiratory failure * Influenza A viral infection * Acute tracheobronchitis * asthma exacerbation * History of rheumatoid arthritis hypertension * Acute hyponatremia * Elevated troponin secondary to type II CA * In regards to acute hypoxic respiratory failure likely secondary to underlying viral infection/exacerbation of asthma. Continue patient on doxycyline day 3/5 , Mucinex, IV Solu-Medrol transition to oral prednisone * In regards to tracheobronchitis, continue Mucinex and steroids * In regards to elevated troponin continue to trend cardiology consulted continue telemonitoring * In regards to acute hyponatremia continue to monitor electrolyte panel * CODE STATUS is full code
--- NOTE | 2023-11-13 12:35 | P.PN ---
Subjective Progress Note Date: 11/13/23 Principal diagnosis: Shortness of breath. I am seeing this patient in new consultation today November after she presented to the emergency room yesterday morning complaining of infectious like symptoms. Patient is a 73-year-old white female with past medical history significant for asthma, coronary artery disease with previous CABG, possible TIA, GERD, rheumatoid arthritis, among other things. Starting last week, the patient began to experience headache, malaise, nausea, reduced appetite, diarrhea, subjective fevers, dry persistent cough, and shortness of breath. Her primary care provider is Dr. Melyssa Brooks. She was seen in the office, and was prescribed azithromycin, steroids, and Symbicort inhaler. Unfortunately, her symptoms persisted despite outpatient treatment, and she came to the emergency room yesterday. She did test positive for influenza A on arrival. She has been started on Tamiflu. Chest x-ray demonstrates mild diffuse interstitial dens ities, no focal infiltrates/consolidation. CBC on arrival unremarkable. No leukocytosis. BMP on arrival: Sodium 127, potassium 3.6, chloride 97, serum bicarb 22, BUN 17, creatinine 0.67, glucose 106. Lactic 1.4. Normal saline infusing at 75 mL/h. She is currently sitting up in bed, on 2 L/min nasal cannula, in no acute distress. SpO2 is 96%. She does have a persistent dry cough. She has not had any sputum production. Admits low-grade fevers. She was empirically started on doxycycline. She does have a external heart monitor. She reportedly had a questionable TIA back in September and is being evaluated for arrhythmias. Denies any chest pain, heart palpitations, syncopal events, or lower extremity swelling. Troponin 0.081, 0.072, and 0.08. NT proBNP 666. ECG shows a sinus rhythm with nonspecific T wave inversion and ST abnormalities. Vital signs are stable. Progress note dated November 13, 2023. The patient is seen today room 385. Her daughter in law who is a nurse here at the hospital, was in the room with her. Currently, the patient is on room air. She is getting saline at 20 cc an hour. She was admitted with a diagnosis of asthma exacerbation, complicated by influenza. She was started on Tamiflu, 75 mg twice a day. Her Solu-Medrol, will be changed to prednisone 30 mg a day. From the pulmonary perspective, the patient could be considered for discharge. She can take the prednisone taper at home, and the Tamiflu at home. White count is 9.3, hemoglobin 13, hematocrit 39.1, platelet count 186,000. Sodium 132, potassium 3.7, chloride 102, CO2 21, BUN 13, creatinine 0.59. Glucose is 139. Objective - Vital Signs Vital signs: Vital Signs Temp 97.6 F 11/13/23 09:10 Pulse 74 11/13/23 12:27 Resp 16 11/13/23 12:27 BP 110/62 11/13/23 12:27 Pulse Ox 94 L 11/13/23 12:27 FiO2 Intake & Output 11/12/23 11/13/23 11/13/23 18:59 06:59 18:59 Intake Total 90 540 240 Output Total 0 Balance 90 540 240 Weight 86.183 kg 86.183 kg Intake: Oral 90 540 240 Output: Gastric Drainage 0 Urine 0 Stool 0 Urine/Stool Mix 0 Emesis 0 Oral Regurgitation 0 Other 0 Other: Voiding Method Toilet Toilet Toilet # Voids 0 2 # Bowel Movements 0 - Exam No acute distress, oriented 3. No respiratory distress. No audible wheezing. No use of accessory muscles. HEENT examination is grossly unremarkable. Mucous membranes are moist. No oral lesions. Neck supple. Full range of motion. No adenopathy thyromegaly or neck vein distention. Cardiovascular examination reveals regular rhythm rate. S1-S2 normal. No S3 or S4. No discernible murmur noted. Heart rate is 80 bpm. Lungs reveal scattered mild rhonchi and wheezes. No crackles. Breath sounds equal bilaterally. Slight prolongation on forced maneuver. Room air saturation is 96%. Abdomen soft bowel sounds are heard. No masses or tenderness. Extremities are intact. No cyanosis clubbing or edema. Skin is without rash or lesion. Neurologic examination is brief but nonfocal. - Labs CBC & Chem 7: 11/13/23 08:09 11/13/23 08:09 Labs: Abnormal Lab Results - Last 24 Hours (Table) 11/12/23 11/12/23 11/12/23 Range/Units 06:21 16:43 20:08 RDW (11.5-15.5) % Sodium (137-145) mmol/L Carbon Dioxide (22-30) mmol/L Glucose (74-99) mg/dL POC Glucose (mg/dL) 135 H 150 H (70-110) mg/dL Calcium (8.4-10.2) mg/dL HDL Cholesterol 25.50 L (40.00-60.00) mg/dL 11/13/23 11/13/23 11/13/23 Range/Units 06:20 08:09 08:09 RDW 15.9 H (11.5-15.5) % Sodium 132 L (137-145) mmol/L Carbon Dioxide 21 L (22-30) mmol/L Glucose 139 H (74-99) mg/dL POC Glucose (mg/dL) 116 H (70-110) mg/dL Calcium 8.2 L (8.4-10.2) mg/dL HDL Cholesterol (40.00-60.00) mg/dL 11/13/23 Range/Units 11:48 RDW (11.5-15.5) % Sodium (137-145) mmol/L Carbon Dioxide (22-30) mmol/L Glucose (74-99) mg/dL POC Glucose (mg/dL) 123 H (70-110) mg/dL Calcium (8.4-10.2) mg/dL HDL Cholesterol (40.00-60.00) mg/dL Assessment and Plan Assessment: Acute hypoxemic respiratory failure, currently on 2 L/min nasal cannula, secondary to acute influenza A tracheobronchitis and mild asthma exacerbation. Elevated troponins, rule out NSTEMI. Hyponatremia, possibly secondary to poor oral intake. History of mild intermittent asthma. Hypertension. History of hyperlipidemia. Coronary artery disease, with previous history of CABG. History of possible TIA. History of GERD without esophagitis. History of rheumatoid arthritis. Obesity, with a BMI of 34.8 kg/m. Remote history of smoking/tobacco dependence. Plan: Plan dated November 13, 2023. The patient appears to be doing relatively well. The patient could be discharged home on Tamiflu 75 mg twice a day for total of 5 days. In addition, Solu-Medrol was changed to prednisone, and the patient can be discharged home on a prednisone taper. I be happy to see him in the office afterwards. Labs, x- rays, and medications are reviewed. Her syvqbenh-oh-rkt, who is a nurse here at the hospital, was in the room. She will make sure that her [id number] foll ows up with me in the office. No additional recommendations are made. Overall prognosis remains guarded. Time with Patient: Less than 30
[2023-11-13] MEDS: guaiFENesin-DM 100-10MG/5ML 10 ML CUP PO SCH ×4 (14:13→19:52)
[2023-11-13 16:35] LABS: Glucose,Whole Blood 136 mg/dL (70-110)
[2023-11-13] MEDS: ATORVASTATIN 40 MG TAB PO SCH (19:52)
[2023-11-13] MEDS: ASPIRIN 81 MG PO SCH (19:52)
[2023-11-13] MEDS: ZOLPIDEM 5 MG TAB PO PRN (19:54)
[2023-11-13 20:07] LABS: Glucose,Whole Blood 122 mg/dL (70-110)
[2023-11-14 06:02] LABS: Glucose,Whole Blood 101 mg/dL (70-110)
[2023-11-14] MEDS: PANTOPRAZOLE 40 MG TABLET PO SCH (06:03)
[2023-11-14] MEDS: guaiFENesin-DM 100-10MG/5ML 10 ML CUP PO SCH ×2 (06:03→12:14)
[2023-11-14] MEDS: SODIUM CHLORIDE 0.9% 1,000 ML IV SCH ×2 (06:07→07:46)
[2023-11-14] MEDS: EZETIMIBE 10 MG TAB PO SCH (07:45)
[2023-11-14] MEDS: DOXYCYCLINE 100 MG CAP PO SCH (07:46)
[2023-11-14] MEDS: OSELTAMIVIR 75 MG CAP PO SCH (07:46)
[2023-11-14] MEDS: METOPROLOL TARTRATE 50 MG TAB PO SCH (07:46)
[2023-11-14] MEDS: lisinopriL 20 MG TAB PO SCH (07:46)
[2023-11-14] MEDS: ENOXAPARIN 40 MG/0.4 ML SYRINGE SQ SCH (07:46)
[2023-11-14] MEDS: CALCIUM CARB-VIT D 500 MG-5 MCG TAB PO SCH (07:46)
[2023-11-14 08:19] VITALS: BP 153/87; RESP 16; TEMP 97.9
[2023-11-14] MEDS ORDERED: predniSONE 10 MG TAB PO SCH (09:00)
[2023-11-14] MEDS: SYMBICORT 160-4.5 MCG INHALER INHALATION SCH (09:13)
[2023-11-14] MEDS: IPRATROPIUM-ALBUTEROL 3 ML NEB INHALATION SCH ×2 (09:13→11:42)
--- NOTE | 2023-11-14 10:31 | P.PN ---
Subjective Progress Note Date: 11/14/23 Principal diagnosis: Shortness of breath. I am seeing this patient in new consultation today November after she presented to the emergency room yesterday morning complaining of infectious like symptoms. Patient is a 73-year-old white female with past medical history significant for asthma, coronary artery disease with previous CABG, possible TIA, GERD, rheumatoid arthritis, among other things. Starting last week, the patient began to experience headache, malaise, nausea, reduced appetite, diarrhea, subjective fevers, dry persistent cough, and shortness of breath. Her primary care provider is Dr. Melyssa Brooks. She was seen in the office, and was prescribed azithromycin, steroids, and Symbicort inhaler. Unfortunately, her symptoms persisted despite outpatient treatment, and she came to the emergency room yesterday. She did test positive for influenza A on arrival. She has been started on Tamiflu. Chest x-ray demonstrates mild diffuse interstitial dens ities, no focal infiltrates/consolidation. CBC on arrival unremarkable. No leukocytosis. BMP on arrival: Sodium 127, potassium 3.6, chloride 97, serum bicarb 22, BUN 17, creatinine 0.67, glucose 106. Lactic 1.4. Normal saline infusing at 75 mL/h. She is currently sitting up in bed, on 2 L/min nasal cannula, in no acute distress. SpO2 is 96%. She does have a persistent dry cough. She has not had any sputum production. Admits low-grade fevers. She was empirically started on doxycycline. She does have a external heart monitor. She reportedly had a questionable TIA back in September and is being evaluated for arrhythmias. Denies any chest pain, heart palpitations, syncopal events, or lower extremity swelling. Troponin 0.081, 0.072, and 0.08. NT proBNP 666. ECG shows a sinus rhythm with nonspecific T wave inversion and ST abnormalities. Vital signs are stable. Progress note dated November 13, 2023. The patient is seen today room 385. Her daughter in law who is a nurse here at the hospital, was in the room with her. Currently, the patient is on room air. She is getting saline at 20 cc an hour. She was admitted with a diagnosis of asthma exacerbation, complicated by influenza. She was started on Tamiflu, 75 mg twice a day. Her Solu-Medrol, will be changed to prednisone 30 mg a day. From the pulmonary perspective, the patient could be considered for discharge. She can take the prednisone taper at home, and the Tamiflu at home. White count is 9.3, hemoglobin 13, hematocrit 39.1, platelet count 186,000. Sodium 132, potassium 3.7, chloride 102, CO2 21, BUN 13, creatinine 0.59. Glucose is 139. Nurse note dated November 14, 2023. Patient is seen today in room 385. The patient is hoping to be discharged home sometime later today. I do not know that any decision has yet been made. She is currently on room air. She is not receiving any IV fluids. She is feeling better. She does have a history of mild intermittent asthma, which apparently was complicated by influenza. She was started on Tamiflu, 75 mg twice a day for 5 days. No new laboratory data today other than a glucose of 101. Objective - Vital Signs Vital signs: Vital Signs Temp 97.9 F 11/14/23 07:42 Pulse 87 11/14/23 09:24 Resp 16 11/14/23 07:42 BP 153/87 11/14/23 07:42 Pulse Ox 94 L 11/14/23 09:15 FiO2 Intake & Output 11/13/23 11/14/23 11/14/23 18:59 06:59 18:59 Intake Total 240 240 Balance 240 240 Weight 86.183 kg Intake: Oral 240 240 Other: Voiding Method Toilet Toilet Toilet # Voids 2 - Exam No acute distress, oriented 3. No respiratory distress. No audible wheezing. No use of accessory muscles. Currently on room air. HEENT examination is grossly unremarkable. Mucous membranes are moist. No oral lesions. Neck supple. Full range of motion. No adenopathy thyromegaly or neck vein distention. Cardiovascular examination reveals regular rhythm rate. S1-S2 normal. No S3 or S4. No discernible murmur noted. Heart rate is 87 bpm. Lungs reveal scattered mild rhonchi and wheezes. No crackles. Breath sounds equal bilaterally. Slight prolongation on forced maneuver. Room air saturation is 95 %. Abdomen soft bowel sounds are heard. No masses or tenderness. Extremities are intact. No cyanosis clubbing or edema. Skin is without rash or lesion. Neurologic examination is brief but nonfocal. - Labs CBC & Chem 7: 11/13/23 08:09 11/13/23 08:09 Labs: Abnormal Lab Results - Last 24 Hours (Table) 11/13/23 11/13/23 11/13/23 Range/Units 11:48 16:31 20:06 POC Glucose (mg/dL) 123 H 136 H 122 H (70-110) mg/dL Assessment and Plan Assessment: Acute hypoxemic respiratory failure, currently on room air, secondary to acute influenza A tracheobronchitis and mild asthma exacerbation. Elevated troponins, rule out NSTEMI. Hyponatremia, possibly secondary to poor oral intake. History of mild intermittent asthma. Hypertension. History of hyperlipidemia. Coronary artery disease, with previous history of CABG. History of possible TIA. History of GERD without esophagitis. History of rheumatoid arthritis. Obesity, with a BMI of 34.8 kg/m. Remote history of smoking/tobacco dependence. Plan: Plan dated November 13, 2023. The patient appears to be doing relatively well. The patient could be discharged home on Tamiflu 75 mg twice a day for total of 5 days. In addition, Solu-Medrol was changed to prednisone, and the patient can be discharged home on a prednisone taper. I be happy to see him in the office afterwards. Labs, x- rays, and medications are reviewed. Her apgerxaw-it-fex, who is a nurse here at the hospital, was in the room. She will make sure that her [id number] follow s up with me in the office. No additional recommendations are made. Overall prognosis remains guarded. Plan dated November 14, 2023. The patient appears to be doing relatively well. She is on room air. No IV fluids. She is hoping to be discharged home later today. The patient will follow-up with me in the office. She apparently does have mild intermittent asthma. For this, she uses albuterol as needed. Labs, x-rays, and medications are reviewed. She should complete 5 days of Tamiflu, 75 mg twice a day. In addition, she should be discharged home on a tapering dose of prednisone. I will be happy to see her in the office. No additional recommendations are made, should she be discharged home today. Time with Patient: Less than 30
[2023-11-14 11:51] LABS: Glucose,Whole Blood 93 mg/dL (70-110)
[2023-11-14 11:59] VITALS: PULSE 83
--- NOTE | 2023-11-14 13:32 | P.DS ---
Providers Date of admission: 11/11/23 13:45 Expected date of discharge: 11/14/23 Attending physician: Chris Tavarez Consults: 11/11/23 13:43 Consult Physician Routine Consulting Provider: Guillermo Mueller Consult Reason/Comments: influenza, respiratory failure Do you want consulting provider notified?: Yes Primary care physician: [facility] Course: 73-year-old patient with past medical history significant for coronary artery disease, asthma, hyperlipidemia, rheumatoid arthritis, history of coronary artery bypass, who was recently admitted September 2023 with episode of TIA presents to the emergency department with complaints of shortness of breath. * Patient was having symptoms for approximately 1 week however she was noted to be increased weak, chills, shortness of breath, chest congestion and productive cough. Patient complained of yellow-colored phlegm. Patient states she finished a course of steroid however she did not have any relief. Patient also states he took azithromycin outpatient * Patient denies associated chest pain however does complain of cough and sputum production * Workup initiated ER include WBC count of 6.4 hemoglobin 14 platelet count of 148 * INR of 1.1, * Serum chemistry shows sodium 127 potassium 3.6 chloride 97 BUN 17 creatinine 0.67 glucose 106 * Patient was noted to have magnesium 1.3 bilirubin of 1.5 * Troponin obtained 0.081, N-terminal proBNP 666 * Patient tested positive for influenza * 11/12/2023 : Patient seen and evaluated at bedside, patient states breathing has improved, CRP 6.8, troponin remains flat at 0.08, WBC count 2.1, noted to have lymphocyte count drop secondary to viral infection sodium 129 blood glucose 137. Continue patient on breathing treatment, continue patient on current medical management * 11/13/2023: Patient seen and evaluated bedside, patient states he feels better. Blood work reviewed CBC improved renal function within normal limits, Na 132 * 11/14/2023: Patient seen and evaluated bedside patient is alert and 904 on room air, patient to be discharged home, prescription provided. Patient given antibiotic Tamiflu and prednisone for home PHYSICAL EXAMINATION: GENERAL: The patient is alert and oriented x3, appearing well, nasal cannula removed HEENT: Pupils are round and equally reacting to light. EOMI. No scleral icterus. No conjunctival pallor. Normocephalic, CARDIOVASCULAR: S1 and S2 present. No murmurs, rubs, or gallops. PULMONARY: Improved air entry bilaterally ABDOMEN: Soft, nontender, nondistended, normoactive bowel sounds. No palpable organomegaly. MUSCULOSKELETAL: No joint swelling or deformity. EXTREMITIES: No cyanosis, clubbing, or pedal edema. NEUROLOGICAL: Gross neurological examination did not reveal any focal deficits. SKIN: No rashes. Assessment and plan * Acute hypoxic respiratory failure RESOLVED * Influenza A viral infection * Acute tracheobronchitis * asthma exacerbation * History of rheumatoid arthritis hypertension * Acute hyponatremia * Elevated troponin secondary to type II MT * In regards to acute hypoxic respiratory failure likely secondary to underlying viral infection/exacerbation of asthma. Continue patient on doxycyline day 4/5 , Mucinex, IV Solu-Medrol transition to oral prednisone x 2 days * In regards to tracheobronchitis, continue Mucinex and steroids * In regards to elevated troponin , main flat cardiology consulted * In regards to acute hyponatremia continue to monitor electrolyte panel, sodium levels improved Patient Condition at Discharge: Fair Plan - Discharge Summary Discharge Rx Participant: No New Discharge Prescriptions: New Oseltamivir [Tamiflu] 75 mg PO Q12HR 2 Days #4 cap predniSONE 20 mg PO DAILY 2 Days #4 tab guaiFENesin-DM 100-10MG/5ML [Robitussin DM] 10 ml PO Q6HR 5 Days #200 ml Doxycycline [Vibramycin] 100 mg PO BID 2 Days #4 cap Continue Metoprolol Tartrate [Lopressor] 50 mg PO BID Atorvastatin [Lipitor] 40 mg PO HS Albuterol Sulfate [Proair Hfa] 2 puff INHALATION RT-Q6H PRN PRN Reason: Shortness Of Breath Omeprazole [PriLOSEC] 20 mg PO DAILY lisinopriL [Zestril] 20 mg PO BID Aspirin EC [Ecotrin Low Dose] 81 mg PO HS metHOTREXate sodium 17.5 mg PO TH Etanercept [Enbrel Sureclick] 50 mg SQ TU Ezetimibe [Zetia] 10 mg PO DAILY Budesonide/Formoterol Fumarate [Symbicort 160-4.5 Mcg Inhaler] 2 puff INHALATION RT-BID Zolpidem [Ambien] 5 mg PO HS PRN PRN Reason: Insomnia Calcium Carbonate/Vitamin D3 [Calcium 600 mg-D3 20 mcg (800 unit)] 1 tab PO DAILY Meloxicam [Mobic] 15 mg PO DAILY Discharge Medication List Albuterol Sulfate [Proair Hfa] 2 puff INHALATION RT-Q6H PRN 03/13/16 [History] Aspirin EC [Ecotrin Low Dose] 81 mg PO HS 03/13/16 [History] Atorvastatin [Lipitor] 40 mg PO HS 03/13/16 [History] Etanercept [Enbrel Sureclick] 50 mg SQ TU 03/13/16 [History] Metoprolol Tartrate [Lopressor] 50 mg PO BID 03/13/16 [History] Omeprazole [PriLOSEC] 20 mg PO DAILY 03/13/16 [History] lisinopriL [Zestril] 20 mg PO BID 03/13/16 [History] metHOTREXate sodium 17.5 mg PO TH 03/13/16 [History] Ezetimibe [Zetia] 10 mg PO DAILY 10/16/22 [History] Calcium Carbonate/Vitamin D3 [Calcium 600 mg-D3 20 mcg (800 unit)] 1 tab PO DAILY 09/30/23 [History] Zolpidem [Ambien] 5 mg PO HS PRN 09/30/23 [History] Budesonide/Formoterol Fumarate [Symbicort 160-4.5 Mcg Inhaler] 2 puff INHALATION RT-BID 11/11/23 [History] Meloxicam [Mobic] 15 mg PO DAILY 11/11/23 [History] Doxycycline [Vibramycin] 100 mg PO BID 2 Days #4 cap 11/14/23 [Rx] Oseltamivir [Tamiflu] 75 mg PO Q12HR 2 Days #4 cap 11/14/23 [Rx] guaiFENesin-DM 100-10MG/5ML [Robitussin DM] 10 ml PO Q6HR 5 Days #200 ml 11/14/23 [Rx] predniSONE 20 mg PO DAILY 2 Days #4 tab 11/14/23 [Rx] Follow up Appointment(s)/Referral(s): Melyssa Duncan MD [Primary Care Provider] - 1-2 days (Office closed at this time; please call [facility] on Thursday to schedule follow up appointment.) Patient Instructions/Handouts: Influenza (DC) Discharge Disposition: HOME SELF-CARE
== END 2023-11-14 13:57 | disposition home or self-care (01) | DRG 193 ==
LOC: EC 10:51 → 3SCARD 13:45
PROVIDERS: ADMIT Hospitalist; ATTEND Hospitalist
DX: J10.1 Influenza due to other identified influenza virus with other respiratory manifestations (principal); I21.A1 Myocardial infarction type 2; J96.01 Acute respiratory failure with hypoxia; J45.21 Mild intermittent asthma with (acute) exacerbation; E87.1 Hypo-osmolality and hyponatremia; I25.10 Atherosclerotic heart disease of native coronary artery without angina pectoris; E78.5 Hyperlipidemia, unspecified; J45.909 Unspecified asthma, uncomplicated; J20.9 Acute bronchitis, unspecified; K21.9 Gastro-esophageal reflux disease without esophagitis; I10 Essential (primary) hypertension; M19.90 Unspecified osteoarthritis, unspecified site; M06.9 Rheumatoid arthritis, unspecified; K43.2 Incisional hernia without obstruction or gangrene; E83.42 Hypomagnesemia; E66.9 Obesity, unspecified; Z68.34 Body mass index [BMI] 34.0-34.9, adult; Z95.1 Presence of aortocoronary bypass graft; Z91.041 Radiographic dye allergy status; Z11.52 Encounter for screening for COVID-19; Z79.899 Other long term (current) drug therapy; Z79.82 Long term (current) use of aspirin; I25.2 Old myocardial infarction; Z87.891 Personal history of nicotine dependence; Z86.73 Personal history of transient ischemic attack (TIA), and cerebral infarction without residual deficits; Z79.51 Long term (current) use of inhaled steroids; Z79.1 Long term (current) use of non-steroidal anti-inflammatories (NSAID)
CPT/HCPCS: 36415; 71046; 80048; 80053; 80061; 83605; 83735; 83880; 84100; 84484; 85025; 85027; 85610; 85730; 86140; 87636; 93005; 94640; 94760; 96372; 96374; 96375; 96376; 99285

== ENCOUNTER → 2024-01-28 | Outpatient (CLI) | payer MEDICARE ==
--- NOTE | 2024-01-28 20:40 | MM ---
Reason for Exam: Screening (asymptomatic). Last screening mammogram was performed 12 month(s) ago. Patient History: Menarche at age 13. First Full-Term at age 26. Postmenopausal. Patient has history of breast feeding. Cyst Aspiration on the Right side. Cyst Aspiration on the Right side. Cyst Aspiration on the Right side. Cyst Aspiration on the Right side. Cyst Aspiration on the Left side. Cyst Aspiration on the Left side. Cyst Aspiration on the Left side. 06/07/2009, Benign Core Biopsy on the right side. 03/27/2006, Benign Core Biopsy on the right side. 10/19/1998, Cyst Aspiration on the Right side. 10/19/1998, Benign Ultrasound-Guided Cyst Aspiration on the right side. Sister had breast cancer, age 69. Risk Values: Liliana 5 year model risk: 5.2%. NCI Lifetime model risk: 13.0%. Prior Study Comparison: 10/04/2020 Bilateral Screening Mammogram, [facility]. 01/24/2022 Bilateral Screening Mammogram, [facility]. 01/26/2023 Bilateral MG 3D screening mammo w/cad, [facility]. Tissue Density: There are scattered areas of fibroglandular density. Findings: Analyzed By CAD. The pattern is symmetrical. There appears stable. Core markers within the right breast. Scattered benign calcifications are present bilaterally. No suspicious groups of microcalcifications, spiculated or lobular masses, architectural distortion or other secondary signs of malignancy are mammographically apparent. Overall Assessment: Benign, BI-RAD 2 Management: Screening Mammogram of both breasts in 1 year. A negative mammogram report should not preclude additional follow up of suspicious palpable abnormalities. Patient should continue monthly self breast exam. A clinical breast exam by your physician is recommended on an annual basis and results should be correlated with mammographic findings. Note on Liliana scores and lifetime risk: 1. A Liliana score greater than 3% is considered moderate risk. If this is the case, consider specialist referral to assess eligibility for a risk reducing agent. 2. If overall lifetime risk for the development of breast cancer is 20% or higher, the patient may qualify for future screening with alternating mammogram and breast MRI. Electronically signed and approved by: Danilo Oquendo D.O. Radiologis
== END | disposition home or self-care (01) ==
LOC: RADMAMWWP 11:08
PROVIDERS: ATTEND Family Medicine
DX: Z12.31 Encounter for screening mammogram for malignant neoplasm of breast (principal); Z78.0 Asymptomatic menopausal state; Z80.3 Family history of malignant neoplasm of breast
CPT/HCPCS: 77063; 77067

== ENCOUNTER → 2024-06-22 | Outpatient (CLI) | payer MEDICARE ==
--- NOTE | 2024-06-22 17:58 | CT ---
INDICATION: Patient age:Female; 73 years old; Reason for study: J84.9 INTERSTITIAL PULMONARY DISEASE; [facility]. COMPARISON: Chest radiograph 06/02/2024 TECHNIQUE: Multiple thin axial images were obtained through the chest at selected intervals. Prone and supine in spiratory along with supine expiratory images were submitted for review. Please note that due to inte rval acquisition images as defined by high-resolution CT protocol the entire lung parenchyma is not e valuated, therefore small nodular densities may not be visualized. Evaluation of vascular structures , viscera and lymphatics is limited due to lack of intravenous contrast administration. One or more C T dose reduction strategies were utilized during this examination. Total DLP 1368 mGycm. FINDINGS: LUNGS: Diffuse peripheral reticular opacities. No subpleural sparing. No evidence of honeycombing or groundglass opacities. No architectural distortion. Diffuse cylindrical bronchiectasis. No acute area of infiltrative or consolidative change. Mosaic attenuation identified only on expiratory imaging co nsistent with air trapping. LARGE AIRWAYS: Central airways are patent. No dynamic airway collapse on expiratory imaging. PLEURA: No pleural effusion or thickening. HEART AND PERICARDIUM: Enlarged heart. There is no pericardial effusion. Post-CABG changes. MEDIASTINUM AND ELENA: No mediastinal or hilar lymphadenopathy or soft tissue mass. VESSELS: The thoracic aorta is normal in course and caliber. CHEST WALL AND DIAPHRAGM: Normal. LOWER NECK: Normal. UPPER ABDOMEN: Dystrophic calcification within the right hepatic lobe. MUSCULOSKELETAL: No acute fracture. Median sternotomy wires. IMPRESSION: Findings of nonspecific interstitial pulmonary disease.
== END | disposition home or self-care (01) ==
LOC: RADCTMAIN 12:32
PROVIDERS: ATTEND Internal Medicine Critical Care Medicine
DX: J84.9 Interstitial pulmonary disease, unspecified
CPT/HCPCS: 71250